=== PATIENT | male | born 1945 | race Caucasian/White ===

== ENCOUNTER 2017-03-04 17:31 | Inpatient (IN) | payer MEDICARE ==
[~2017-03-04] VITALS: Ht 172.7 cm; Wt 87.3 kg
[2017-03-04 17:35] VITALS: BP 121/78; PULSE 122; RESP 36; O2SAT 84
[2017-03-04 17:52] VITALS: BP 148/71; PULSE 110; RESP 19; O2SAT 90
[2017-03-04] MEDS ORDERED: MethylprednisoLONE Sodium Succinate 62.5 mg/mL 2 mL Inj IVPUSH ONE (18:10)
[2017-03-04] MEDS ORDERED: Epinephrine Racemic 2.25% 0.5 mL Inhalation Solution NEB ONE (18:10)
[2017-03-04 18:16] VITALS: PULSE 106; RESP 29; O2SAT 91
[2017-03-04] MEDS ORDERED: Albuterol 2.5 mg/3 mL Inhalation Solution NEB ONE (18:21)
[2017-03-04 18:30] LABS: INR 1.51 ratio
[2017-03-04 18:31] LABS: BASOPHILS % (AUTO) 0.6 % (0-3); MONOCYTES % (AUTO) 8.3 % (4-12); Mean Corpuscular Hemoglobin 31.3 pg (27.0-35.0); Mean Corpuscular Volume 89.4 fL (81-100); NEUTROPHILS % (AUTO) 58.5 % (40-74)
[2017-03-04 18:33] LABS: Platelet Count 42 bil/L (150-400)
--- NOTE | 2017-03-04 18:48 | ED.REPORT ---
HPI-Dyspnea / Wheezing Date of Service Mar 04, 2017 ED Provider: Jeff Sanchez MD Pt is a 71 year old male with a history of PE and recently diagnosed lung cancer who presents to the ED complaining of progressively worsening SOB onset 1 month ago. He c/o associated diaphoresis, dyspnea with exertion, and non- productive cough. He denies fever, leg swelling, and chest pain. Pt is currently using home O2 at 21/min. Pt was referred to the ED by Dr. Wilson for a facilitated biopsy. The pt is currently not taking his Coumadin for the past 3 days. Nursing Notes Stated Complaint: SOB Chief Complaint: Respiratory Distress Nursing Notes Reviewed: Yes (Hail Varsity, TrewCaps not reconciled) Allergies: Coded Allergies: No Known Allergies (Unverified , 03/04/17) Scheduled ([NOW brand diet supp]) 1 CAPSULE PO BID Allopurinol (Allopurinol) 100 Mg Tablet 100 MG PO HS Amlodipine (Amlodipine) 5 Mg Tablet 5 MG PO HS Cholecalciferol (Vitamin D3) (Vitamin D3) 2,000 Unit Capsule 5,000 UNIT PO DAILY Krill Oil (Krill Oil) 500 Mg Capsule 500 MG PO DAILY Lactobacillus Combo No.11 (Probiotic) 1 Each Cap.sprink 1 EACH PO BID Lovastatin (Lovastatin) 20 Mg Tablet 20 MG PO HS Prednisone (PredniSONE) 10 Mg Tablet 40 MG PO DAILY Thyroid,Pork (Nature-Throid) 162.5 Mg Tablet 195 MG PO HS Warfarin Sodium (Jantoven) 5 Mg Tablet 5 MG PO ALL OTHER DAYS Warfarin Sodium (Warfarin Sodium) 7.5 Mg Tablet 7.5 MG PO Wed Scheduled PRN Albuterol Neb Soln (Albuterol Neb Soln) 2.5 Mg/3 Ml Vial.neb 1 NEB INH Q4H PRN PRN For Shortness of Breath Lorazepam (Lorazepam) 0.5 Mg Tablet 1 TAB PO BID PRN PRN ANXIETY OR SLEEP General Time Seen by MD: 17:48 Chief Complaint Shortness of breath Hx Obtained From: Patient Arrived By: Walk-in Sudden in Onset?: No Onset Occurred: More than a week ago... (1 month) Symptom Duration: Since onset Severity: Current: No pain currently Severity: Maximum: No pain Recent Healthcare: Recent doctor visit Similar Sx Previous: No Past Medical History Past Medical History Pulmonary embolism Lung cancer Past Surgical History Denies Smoking History Unknown if Ever Smoker Social History Other Social History: Good social support Ambulatory Status Independent Review of Systems Constitutional: Denies: Fever Respiratory: Reports: Dyspnea on exertion, Non-productive cough, Shortness of breath Cardiovascular: Denies: Chest pain Musculoskeletal: Denies: Extremity swelling Allergy / Immune: Reports: Allergic reaction Complete sys rev & neg: except as marked. Physical Exam Initial Vital Signs Vital Signs (First) Date Time Temp Pulse Resp B/P Pulse Ox O2 Delivery O2 Flow Rate FiO2 03/04/17 17:35 36.4 122 36 121/78 84 Nasal Cannula 2 Initial VS: Reviewed, Vital signs abnormal Head / Eyes: Atraumatic, Normocephalic Abdomen / GI: Soft, Non-tender Extremities: Vascular intact, Neuro intact Skin: Warm, Dry, No cyanosis Neurologic: Alert, Oriented, Nonfocal Psychiatric: Mood/affect normal, Behavior normal General/Constitutional: Awake, Alert Neck: Atraumatic, Full range of motion Respiratory / Chest: Atraumatic, Breath sounds = bilat Mildly tachypneic, but does not appear to be dypneic at rest. Mild bronchospasms in all rivera. Cardiovascular: Heart rate NL, Regular rhythm, Heart sounds NL No edema. No findings of venous embolism evident on clinical exam. Interpretation & Diagnostics PE STUDY (02/16/17 - MERGED WITH [facility] REPORT): Lungs and pleura: Lungs are abnormal, significantly changed from the comparison study only 6 months ago. There now is a large central right lung mass lesion encasing and infiltrating into the right hilum and posterior mediastinum, and also into the middle mediastinum into the precarinal and subcarinal spaces and into the right paratracheal soft tissues of the middle mediastinum where enlarged lymph nodes can be seen. The overall dimensions of this area of contiguous neoplasm is up to 7.2 AP, 9.3 cm transverse and up to 10.9 cm craniocaudad. This encases the adjacent bronchus intermedius and right lower lobe bronchus, constricting these airways significantly to approximately 1/4 their normal diameter. The mass does not yet significantly narrow the transverse dimension of the superior vena cava although its medial border is now concave due to the mass at the right paratracheal area. There are several subcentimeter nodules in the right lung base, potentially pulmonary metastatic disease. Lab Results Interpretation Result Diagram: 03/04/17 1809 03/04/17 1809 Test 03/04/17 17:48 03/04/17 18:09 Urine Color Straw (YELLOW) Urine Appearance Turbid (CLEAR,HAZY) Urine pH 5.5 (5.0-8.0) Urine Specific [place] 1.025 (1.003-1.035) Urine Protein 30mg/dL (NEG,TRACE) Urine Glucose (UA) Negativemg/dL (NEGATIVE) Urine Ketones Negativemg/dL (NEGATIVE) Urine Occult Blood Negative (NEGATIVE) Urine Nitrite Negative (NEGATIVE) Urine Bilirubin Negative (NEGATIVE) Urine Urobilinogen Normalmg/dL (NORMAL) Urine Leukocyte Esterase Negative (NEGATIVE) Urine RBC 0-2/hpf (0-2) Urine WBC 0-5/hpf (0-5) Urine Epithelial Cells Occasional/hpf (NONE-MOD) Urine Crystals Amorphous urates (NONE Urine Bacteria None/hpf (NONE-FEW) Urine Hyaline Casts None/lpf (NONE) Urine Granular Casts None seen (NONE SEEN) Urine Waxy Casts None seen (NONE SEEN) Urine Red Blood Cell Casts None seen (NONE SEEN) Urine White Blood Cell Casts None seen (NONE SEEN) Urine Mucus None seen (None Seen) Urine Trichomonas None seen (NONE SEEN) Urine Yeast None (NONE SEEN) Urinalysis Comment None Urine Culture Reflexed Not indicated Hold Urine Received (Received) White Blood Count 4.8th/mm3 (3.8-10.1) Red Blood Count 3.68mil/mm3 (4.40-5.80) Hemoglobin 11.5g/dL (13.8-17.2) Hematocrit 32.9% (41.0-50.0) Mean Corpuscular Volume 89.4fL (81-100) Mean Corpuscular Hemoglobin 31.3pg (27.0-35.0) Mean Corpuscular Hemoglobin Concent 35.0% (32.0-37.0) Red Cell Distribution Width 13.4% (12.3-15.4) Platelet Count 42bil/L (150-400) Neutrophils (%) (Auto) 58.5% (40-74) Lymphocytes (%) (Auto) 30.4% (14-46) Monocytes (%) (Auto) 8.3% (4-12) Eosinophils (%) (Auto) 1.0% (0-5) Basophils (%) (Auto) 0.6% (0-3) Prothrombin Time 16.3sec (8.1-12.5) Prothromb Time International Ratio 1.51ratio Activated Partial Thromboplast Time 40.8sec (22.8-33.0) Sodium Level 135mEq/L (134-144) Potassium Level 3.8mEq/L (3.5-5.2) Chloride Level 96mEq/L (97-108) Carbon Dioxide Level 21mmol/L (18-29) Blood Urea Nitrogen 25mg/dL (8-27) Creatinine 0.84mg/dL (0.76-1.27) Estimat Glomerular Filtration Rate 95mL/min (>59) Glucose Level 131mg/dL (60-99) Calcium Level 9.4mg/dL (8.5-10.1) Total Bilirubin 0.9mg/dL (0.0-1.2) Aspartate Amino Transf (AST/SGOT) 55U/L (0-50) Alanine Aminotransferase (ALT/SGPT) 29U/L (0-44) Alkaline Phosphatase 105U/L (25-160) Total Protein 7.7g/dL (6.4-8.4) Albumin 3.8g/dL (3.4-5.0) Hold Rey Top Tube Received (Received) Lab Results Interpretation: CBC no leukocytosis, mild anemia, moderate thrombocytopenia (new) CMP normal INR is marginally elevated, warfarin discontinued 3 days ago ECG Interpretation ECG Interpretation: Sinus tachycardia of 116 Time: 18:19 Interpreted by: ED physician X-Ray Chest Interpretation Chest Xray Interpretation: IMPRESSION: Pulmonary edema pattern, mild cardiomegaly. Mild acute CHF. Dictated by: Milton Bustos M.D. on 03/04/2017 at 19:11 View: Portable, 1 view Interpretation / Wet Read by: Interpret - Radiologist Re-Eval/Medical Decision Med Decision/Clinical Course This is a 71-year-old male referred from the oncology office for admission with plan bronchoscopy for worsening and severe lung mass identified on CT scan at Hospital February 16. This patient developed a pulmonary embolus and number months ago and was transferred down off, but workup for the etiology did not identify clear cause the patient is anticoagulated. Initially did okay, but has been having night sweats and then over the past month has had progressive shortness of breath, and on 6 month follow-up had repeat CT imaging demonstrate no pulmonary embolus, but a new mass complicated lung mass in the right hilum-N please see this was done at [place]. The patient's continue to worsen, is now requiring oxygen, gets severely short of breath just walking 5 feet. He has not had chest pain, hemoptysis, leg swelling, or additional complaint. Due to the need for biopsy, his warfarin is being held, with this progressive shortness breath and sent for admission, with a plan to hold anticoagulants and bronchoscopy in a.m. by Dr. Root. On arrival the patient is hypoxic requires O2. He is a low-grade tachycardia. His bronchospastic does have a history of COPD. Grasser repeated and demonstrated new mass. Lab work is notable for thrombocytopenia. Given the slow onset of symptoms progressive over the past month and match their findings have a malignancy, and the absence of a PE-I am not finding evidence of new thrombo-artery disease, furthermore the patient's now also developed thrombocytopenia. Everything at point points at a severe, progressive lung mass that is extremely high risk. Patient is not in distress very much on arrival, but he is tachypnea. He reports he does okay at rest, but any minimal exertion is problematic. Given his CT imaging shows marked narrowing of the airways and abrasion of the proximal, I trialed some racemic epi which seemed to help somewhat. He received albuterol, steroids and attempt to further improve and stabilize his status. Given lab work chemistries to thrombocytopenia the plan is a platelet transfusion for the patient's and appropriately optimized for bronchoscopy. The case is also discussed with admitting hospitalist. Source of Hx: Old records Re-Evaluation/Progress #1: Time of Eval: 17:51 Re-Evaluation/Progress Note: Informed pt of plan for admission. Pt understands and agrees with plan for admission. All questions addressed. Re-Evaluation/Progress #2: Time of Eval: 19:29 Re-Evaluation/Progress Note: Pt rechecked. Updated pt on progress for his treatment and admission. All questions addressed. Consultation #1: Referral / Consult Name: Zia Wilson DO Note: Dr. Wilson called me to send the patient in with plan for admit and pulmonary consultation Consultation #2: Referral / Consult Name: Nciolas Root MD [place]: Will see patient Note: Requests patient be NPO after midnight and no anticoagulation with bronchoscopy planned for AM Consultation #3: Referral / Consult Name: Farheen Goodson DO Consulted With: Hospitalist Call Returned at: 19:12 [place]: Will see patient, Agrees with eval, Agrees with plan, Accepts admit Differential Diagnosis: Positive: COPD exacerbation, Respiratory insufficiency , Negative: Acute coronary syndrome, Exercise induced asthma, Hypertensive emergency, Inhalation injury, Pericarditis, Pulmonary embolism Counseled Regarding: Diagnosis, Lab results, Need for admission Discharge & Departure Impression: Primary Impression: Lung cancer Additional Impressions: Shortness of breath Hypoxia Thrombocytopenia Disposition: ADMITTED TO HOSPITAL Discharge Condition All VS Reviewed: Yes Condition: Stable Referrals: Jese Cai MD (PCP) Crit Care Except Billable Proc Time Spent: 30-74 minutes Services Performed: Patient management by me, Time spent at bedside, Reviewing test results, Reviewing imaging, Discussing patient care, Documentation in record, Time with fam/surrogate Scribe Attestation Portions of this note were transcribed by Shaylee Shah. I, Dr. Sanchez personally performed the history, physical exam and medical decision-making; I reviewed and confirmed the accuracy of the information in the transcribed note. Signed by: Hans Torre, 03/04/17. copies to: Jese Cai MD, Matthew F MD Mar 04, 2017 18:48 Shaylee Jade Mar 04, 2017 19:00
--- NOTE | 2017-03-04 19:15 | DRSVH ---
PROCEDURE: X-RAY CHEST ONE VIEW, PORTABLE ([id number]) INDICATIONS: SOB TECHNIQUE: One view of the chest was acquired. COMPARISON: None. FINDINGS: Surgical changes and devices: None. Lungs and pleura: No pleural effusions or pneumothorax. Lungs are edematous. Mediastinum: Mediastinal contours appear normal. Heart size is mildly enlarged. Bones and chest wall: No suspicious bony lesions. Overlying soft tissues appear unremarkable. IMPRESSION: Pulmonary edema pattern, mild cardiomegaly. Mild acute CHF. Dictated by: Milton Bustos M.D. on 03/04/2017 at 19:11 Approved by: Milton Bustos M.D. on 03/04/2017 at 19:13
[2017-03-04] MEDS ORDERED: 0.9% Sodium Chloride 250 ML IV ONE (19:20)
[2017-03-04] MEDS ORDERED: KRIL500C PO (19:33)
[2017-03-04] MEDS ORDERED: LACT1CAP73 PO (19:33)
[2017-03-04] MEDS ORDERED: ZYL100 PO (19:33)
[2017-03-04] MEDS ORDERED: WARF7.5T4 PO (19:33)
[2017-03-04] MEDS ORDERED: WARF5TAB9 PO (19:33)
[2017-03-04] MEDS ORDERED: CHOL200047 PO (19:33)
[2017-03-04] MEDS ORDERED: PRE10 PO (19:33)
[2017-03-04] MEDS ORDERED: LORA0.5T PO (19:33)
[2017-03-04] MEDS ORDERED: THYR162. PO (19:33)
[2017-03-04] MEDS ORDERED: AMLO5TAB2 PO (19:33)
[2017-03-04] MEDS ORDERED: [UNRECOGNIZED DRUG - OTHER] PO (19:33)
[2017-03-04] MEDS ORDERED: ALBU2.5V4 INH (19:33)
[2017-03-04] MEDS ORDERED: LOVA20TA PO (19:33)
[2017-03-04 19:39] VITALS: BP 152/56; PULSE 127; RESP 26; O2SAT 92
[2017-03-04] MEDS ORDERED: cefTRIAXone Inj 1,000 MG, Lidocaine PF 1% Inj 2.1 ML in Syringe 0 EACH IM ONE (20:00)
[2017-03-04] MEDS ORDERED: HYDROcodone-APAP 7.5-325 mg Tablet PO ONE (20:00)
[2017-03-04] MEDS ORDERED: _HYDROcodone/APAP 5-325 mg Tablet PO PRN (20:00)
[2017-03-04] MEDS ORDERED: Alum-Mag Hydrox-Simeth 30 mL Suspension PO PRN (20:20)
[2017-03-04] MEDS ORDERED: 0.9% Sodium Chloride 1,000 ML IV SCH (20:20)
[2017-03-04] MEDS ORDERED: Ondansetron 2 mg/mL 2 mL Inj IVPUSH PRN (20:20)
[2017-03-04 20:28] LABS: APPEARANCE,URINE TURBID (CLEAR,HAZY); COLOR,URINE STRAW (YELLOW); OCCULT BLOOD,URINE NEGATIVE (NEGATIVE); PH,URINE 5.5 (5.0-8.0); UROBILINOGEN,URINE NORMAL (NORMAL)
[2017-03-04 20:49] VITALS: BP 140/72; PULSE 125; RESP 28; O2SAT 92
[2017-03-04 21:12] VITALS: RESP 18; O2SAT 94
[2017-03-04] MEDS ORDERED: Albuterol-Ipratropium 3 mL Inhalation Solution NEB PRN (21:45)
[2017-03-04] MEDS ORDERED: Albuterol 2.5 mg/3 mL Inhalation Solution NEB PRN (21:45)
[2017-03-04] MEDS ORDERED: Polyethylene Glycol (PEG) 17 Gm Powder PO PRN (21:45)
[2017-03-04] MEDS ORDERED: HYDROcodone-APAP 5-325 mg Tablet PO PRN (21:45)
--- NOTE | 2017-03-04 23:09 | PCM.HPMED ---
Subjective Date of Service Mar 04, 2017 Primary Provider: Admitting Physician: Farheen Goodson DO Primary Care Physician: Jsee Cai MD Attending Physician: Farheen Goodson DO Admit Status: From the Emergency Department, Full Admit, [facility] Telemetry Chief Complaint: Dyspnea with hypoxia. . History of Present Illness: Jono Mayfield is a 71-year-old male with a past medical history significant for hypertension, hyperlipidemia, gout, prostate cancer status post radioactive seed implantation, hypothyroidism, saddle embolus on warfarin, and recently diagnosed large lung mass who presented to [facility] emergency Department for worsening shortness of breath. The patient was at Dr. Wilson of oncology's office who directed the patient to come to the ER as he was severely hypoxemic. The patient presented with an oxygen saturation of 84% on 2 L nasal cannula. The patient was diagnosed with a saddle embolus 6 months ago evaluated at [facility] for possible surgical intervention which was deemed unnecessary at that time and he was started on warfarin. There was no lung mass visualized at that time. He then had a recent CT chest that revealed a large ~10 cm lung mass encroaching on airway. He reports that approximately 5 -6 weeks ago he began having shortness of breath. He reports that his shortness of breath has acutely worsened over the last 10 days, especially in the last 1-2 days. He was recently started on 2 L continuous oxygen yesterday 03/03/2017. The patient denies headache, vision changes, chest pain, pleuritic chest pain, vomiting, fever, chills, extremity pain, calf tenderness, dysuria, diarrhea or constipation. He does endorse night sweats once a month, mid back pain 2 weeks and right rib pain when he bends over. He has had a poor appetite for several months and has lost approximately 5 lbs unintentionally. He was recently started on levofloxacin for postobstructive pneumonia prophylaxis which he reports causes nausea. He has no other complaints at this time. Vital signs in the ER: Temperature 36.4. Pulse 122. Respiratory rate 36. Blood pressure 121/78. Pulse ox 84% on 2 L nasal cannula. He was given in the ED: albuterol continuous nebulizer 10 mg 1, racemic epinephrine nebulizer 1, and methylprednisolone IV 125 mg [address]CP [address] Dr. Cai. Oncologist is Dr. Wilson. . Review of Systems: A comprehensive review of systems was conducted with the patient and found to be negative except as above in the History of Present Illness. . Allergies Coded Allergies: No Known Allergies (Unverified , 03/04/17) Home Medications Allopurinol 100 mg daily. Hydrocodone 5-3 25 every 6 hours as needed for pain. Krill oil 500 mg daily. Levofloxacin 500 mg daily. Lisinopril 10 mg daily. Lovastatin 20 mg daily at bedtime. Lorazepam 0.5 mg as needed for insomnia. Natural pig thyroid supplement 190 daily. Prednisone taper - currently on 30 mg daily. Probiotic daily. Oxygen 2 L continuous. Ubiquinol 100 mg daily. Vitamin D3 2000 international units daily. . PMH 1. Hypothyroidism on natural pork thyroid replacement. 2. Prostate cancer status post radioactive seed implantation. 3. Hypertension. 4. Hyperlipidemia. 5. Gout. 6. Esophageal spasm. 7. Recently diagnosed large inoperable lung mass workup pending. 8. History of saddle embolus on warfarin. 9. Insomnia. . Surgical History 1. Cholecystectomy. 2. Tonsillectomy. 3. Left inguinal hernia repair. 4. Radioactive seed implantation in prostate. . Family History Father who of emphysema and 92 years old. Mother of "old age." One sister who of neuroendocrine tumor. Another sister who has a history of DVT. Brother with morbid obesity and diabetes mellitus type II. . Social History Hx Alcohol Use: Yes (1-2 mixed drinks a night) Hx Substance Use: No Hx Tobacco Use: Yes Smoking Status: Former Smoker (1PPD x 20 years, cigars daily until several months ago now uses vaporizer), Unknown if Ever Smoker Additional Information The patient has been for 50 years. They have 2 children, 1 son and 1 daughter who are both healthy. He is a retired CPA/personal financial planner. . Exam Vital Signs Vital Sign - Last Date Time Temp Pulse Resp B/P Pulse Ox O2 Delivery O2 Flow Rate FiO2 03/04/17 21:12 122 18 94 Nasal Cannula 40 60 03/04/17 20:49 37.4 140/72 Exam General: Older gentleman lying in bed and in mild distress, chronically ill- appearing, appropriately interactive. HEENT: Normocephalic, atraumatic. External ears without defect. Pupils equal, round, and reactive to light. Anicteric sclerae, moist conjunctivae, and no lid lag. Oropharynx free of erythema and cobble stoning with moist mucosa. Neck: Supple with full range of motion. No jugular venous distension. No bruits. No lymphadenopathy or thyromegaly. Cardiovascular: Regular rhythm, tachycardic, without murmurs, rubs, or gallops appreciated. Pulmonary: Diffuse wheezing with scattered rhonchi, no audible breath sounds at right base. Mild use of accessory muscles. Abdomen: Soft, nontender, nondistended, bowel sounds present. No hepatosplenomegaly or masses appreciated. Extremities: No clubbing, cyanosis, or edema. Skin: Normal temperature, turgor, and texture; no rash, ulcers, or subcutaneous nodules appreciated. Neurological: Cranial nerves grossly intact. Normal muscle strength, tone, and bulk. Reflexes, coordination, and sensory function within normal limits. No known gait impairment. Psychiatric: Normal mood and affect. Alert and oriented to person, place, and time. . Lab and Diagnostics Result Diagram: 03/04/17180803/04/171808 Microbiology Blood cultures 2 pending. . X-Rays, CTs and MRIs X-RAY CHEST ONE VIEW, PORTABLE IMPRESSION: Pulmonary edema pattern, mild cardiomegaly. Mild acute CHF. Dictated by: Milton Bustos M.D. on 03/04/2017 at 19:11 . 12-lead ECG EKG: Sinus tachycardia, heart rate 116, left axis, normal intervals, normal R- wave progression, baseline artifact, no pathological Q waves or acute ischemic changes such as ST elevation or depression. . Assessment & Plan Jono Mayfield is a 71-year-old male with a past medical history significant for hypertension, hyperlipidemia, gout, prostate cancer status post radioactive seed implantation, hypothyroidism, saddle embolus on warfarin, and recently diagnosed large lung mass who presented to [facility] emergency Department for worsening shortness of breath. 1. Acute hypoxemic respiratory failure, present on admission. Active. - The patient presented with acute worsening shortness of breath, tachypnea (RR 36), tachycardia (122), and cough with large lung mass concerning for post- obstructive pneumonia. No leukocytosis or fever. 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 He has been off his warfarin for one day for planned bronchoscopy. - Continue high flow oxygen to keep oxygen saturation between 88-92%. - Ordered Duonebs and albuterol nebs every 2 hours as needed for shortness of breath/wheeze. - Started Zosyn IV 3.375 g every 8 hours for probable post-obstructive pneumonia. - Chest x-ray demonstrated pulmonary edema pattern and mild cardiomegaly, as above. May consider furosemide if hypoxia worsens. - Ordered CTA to assess for possible central/saddle pulmonary emboli. 2. SIRS secondary lung mass vs post obstructive pneumonia, present on admission. Active. - The patient presented with acute worsening shortness of breath, tachypnea (RR 36), tachycardic (122), and cough, with large lung mass concerning and also concern for post-obstructive pneumonia. No leukocytosis or fever. - Early goal-directed therapy met including: Broad-spectrum IV antibiotics and early fluid resuscitation. 3. Post-obstructive pneumonia, present on admission. Active. - The patient presented with acute worsening shortness of breath, tachypnea (RR 36), tachycardic (122), and cough, with large lung mass. No leukocytosis or fever. - Chest x-ray demonstrated pulmonary edema pattern and mild cardiomegaly, as above. - CTA ordered and pending. - Pro-calcitonin elevated at 0.36. Continue to trend daily. - Ordered pneumonia workup including: blood cultures 2, sputum Gram stain and culture if obtainable, and strep pneumoniae and legionella urine antigens. - Ordered MRSA screen. - Tylenol and hydrocodone as needed for fever and pain, respectively. - Started Zosyn 3.375 g every 8 hours. 4. Recently diagnosed large lung mass, present on admission. Active. - Patient will be nothing by mouth after midnight for planned bronchoscopy tomorrow with Dr. Root. - Continue methylprednisolone 125 mg every 6 hours. - Continue high flow oxygen to keep oxygen saturation between 88-92%. - Ordered oncology consultation with Dr. Katie forte oncologist. 5. History of saddle embolus on warfarin. - The patient stopped warfarin a day ago for planned bronchoscopy. - Initial INR subtherapeutic at 1.51. Continue warfarin with dosing per pharmacist once bronchoscopy is completed. - Ordered CTA to assess for possible central/saddle pulmonary emboli. 6. Thrombocytopenia, acuity unknown, present on admission. Active. - Likely secondary to bone marrow suppression from lung carcinoma. - Initial platelet count 42. - Ordered 1 unit of platelets to be transfused. - Continue to monitor platelet count daily. 7. Anemia, acuity unknown, present on admission. Active. - Likely secondary to bone marrow suppression from lung carcinoma. - Initial hemoglobin 11.5. -The patient is hemodynamically stable and there are no signs of bleeding. - Continue to monitor hemoglobin and hematocrit daily. Chronic problems: 8. Gout, not present on admission. Stable. - Continue allopurinol 100 mg daily. 9. Hypertension, present on admission. Stable. - Continue lisinopril 10 mg daily. 10. Hyperlipidemia, present on admission. Stable. - Continue lovastatin 20 mg daily at bedtime. 11. Insomnia, present on admission. Stable. - Continue lorazepam 0.5 mg as needed for insomnia. 12. Hypothyroidism, present on admission. Stable. - The patient would like to continue taking his natural pork thyroid supplement 190 mg daily please verify with pharmacy. - Ordered TSH, pending. PRN antiemetics: Zofran and Maalox. PRN bowel regimen: Senna and MiraLAX. PRN analgesics: Tylenol and hydrocodone. Patient is admitted under inpatient status with expected length of stay greater than 2 midnights due to severity of presenting symptoms, risk of adverse event, and complexity of treatment plan. . VTE Prophylaxis: SCDs Resuscitation Status: CPR: Attempt Resuscitation Attending Statement The patient was seen and examined together with house staff on 03/04/2017 and I agree with the history, exam and plan as outlined in the note above. copies to: Zia Wilson DO; Jese Cai MD; Zulema Root MD, [place] M DO Mar 04, 2017 22:18 Farheen Goodson DO Mar 05, 2017 04:36
[2017-03-04] MEDS ORDERED: Piper-Tazo 3.375 Gm/50 mL D5W Minibag Plus - Q8H over 4 hrs IV ONE ×2 (23:40)
[2017-03-04] MEDS ORDERED: Piperacillin-Tazo 3.375 Gm Inj 3.375 GM in Dextrose 5% Minibag Plus 50 ML IV ONE (23:40)
[2017-03-05] VITALS (25 sets, daily range): BP systolic 120–149; BP diastolic 60–80; PULSE 98–134; RESP 18–38; O2SAT 77–94
[2017-03-05] MEDS: 0.9% Sodium Chloride 250 ML IV SCH ×2 (00:19→21:20)
[2017-03-05] MEDS ORDERED: Heparin 5,000 Unit/mL Inj SUBQ SCH (00:30)
[2017-03-05] MEDS: LORazepam 0.5 mg Tablet PO PRN ×2 (01:37→19:10)
[2017-03-05] MEDS: MethylprednisoLONE Sodium Succinate 62.5 mg/mL 2 mL Inj IVPUSH SCH ×4 (01:47→21:16)
[2017-03-05 04:19] LABS: BASOPHILS % (AUTO) 0.9 % (0-3); EOSINOPHILS % (AUTO) 0.9 % (0-5); Mean Corpuscular Hemoglobin 31.4 pg (27.0-35.0); NEUTROPHILS % (AUTO) 59.8 % (40-74); Platelet Count 80 bil/L (150-400)
[2017-03-05 04:28] LABS: INR 1.3 ratio
[2017-03-05 04:49] LABS: Magnesium 2.3 mg/dL (1.6-2.6)
[2017-03-05] MEDS ORDERED: Furosemide 10 mg/mL 4 mL Inj IVPUSH ONE (05:00)
--- NOTE | 2017-03-05 05:58 | NUR ---
Admit/CT/Respiratory/NPO Pt admitted to room 2025 at around 2100, arrived and able to transfer from bed to bed w/ SBA but w/ significant dyspnea. Pt bedrest remainder of night and verbalized understanding. in room as pt arrived and trialed pt off 15L nonrebreather and on to 15L NC. Pt monitored on DRAG SEINER, maintaining sats 92-93. MD asked RT to place pt on high flow at that time, settings 40L and 50% FiO2, sats 93-94%. Pt not in acute distress and able to answer questions appropriately, denied any pain. Tele STach 120s. Med rec reviewed prior to arrival to floor. Stat CT ordered and pt taken down once CT available. Pt taken in bed and on 15L nonrebreather mask. RT also came to standby as pt had CT done, pt able to tolerate w/out events. 1 unit platelets ordered and given w/out any new noted or reported symptoms, vitals stable throughout. This morning as pt turned to left to urinate while in bed he took a significant amount of time to recover, sats sustaining around 82%. Pt denied any significant SOB, but noted to have increased work of breathing. RT was called and gave neb treatment, high flow setting adjusted to 50L/60%, sats now 88-91%. notified and ordered one time 40mg Lasix dose. Pt NPO since midnight except for PO Ativan dose around 0140. Ongoing care. Addendum: 03/05/17 at 0714 by NARENDRA FLORES RN Red streaked sputum sent to lab, aware.
[2017-03-05] MEDS ORDERED: levoFLOXacin Inj 750 MG in IV Premix 1 EACH IV SCH (08:30)
--- NOTE | 2017-03-05 08:34 | DRSVH ---
PROCEDURE: CT ANGIO CHEST PULMONARY EMBOLISM ([id number]) INDICATIONS: sob, large lung mass and h/o saddle emboli TECHNIQUE: After the administration of intravenous contrast, 2 mm thick sections acquired from the pulmonary api mirella to the posterior costophrenic angles. 3-dimensional maximum intensity projection (MIP) coronal a nd sagittal reformats were then acquired through the thorax. For radiation dose reduction, the follo wing was used: automated exposure control, adjustment of mA and/or kV according to patient size. COMPARISON: [facility], CT, PE STUDY (CTA CHEST), 02/16/2017, 10:07. FINDINGS: Image quality: Excellent. Pulmonary arteries: Pulmonary arteries are normal in size, and demonstrate no intraluminal filling d efects to suggest central pulmonary embolism. Lungs and pleura: There is new moderate multifocal groundglass densities seen within the left upper a nd lower lobes. New dense air space opacification within the right upper and lower lobes posteriorly is present, consistent with postobstructive phenomenon. Multiple increased nodular densities are seen within the bilateral lungs, partially obscured by airspace disease. These range in size from 4 mm-14 mm. No pleural effusions or pneumothorax. Central and peripheral airways are patent. Mediastinum: Heart size is normal, without pericardial effusion. As before, there is a large mediast inal/right hilar mass which encases the right main pulmonary artery, as well as the right upper, righ t middle, and right lower lobe pulmonary arteries. The mass encases the right mainstem bronchus, the right upper lobe bronchus, the bronchus intermedius, as well as the right lower and right middle lobe bronchi. This mass severely narrows the right middle lobe bronchus, and occludes the right upper and lower lobe bronchi. The mass extends posteriorly to partially encase the esophagus. The mass measure s roughly 94 mm anteroposterior by 96 mm transverse by 9 mm craniocaudal, and has increased in size. Thoracic aorta is normal in caliber and enhancement. Esophagus is normal in caliber, without hiatal hernia. Diffuse esophageal thickening, especially involving the mid and superior thoracic esophagus i s present. Bones and chest wall: No suspicious bony lesions. Ribs and thoracic spine appear intact throughout. Thyroid gland is not well seen. No axillary or supraclavicular adenopathy. Abdomen: Visualized upper abdominal solid organs appear normal in the early arterial phase of enhanc ement. IMPRESSION: 1. No pulmonary embolus. 2. Increased mediastinal/right hilar mass with bronchovascular encasement and occlusion. 3. New multifocal airspace/groundglass densities, indicating worsening postobstructive phenomenon, an d pneumonia. 4. Increased pulmonary metastatic disease. 5. Concordant with preliminary interpretation. Dictated by: Brittany Macario M.D. on 03/05/2017 at 8:07 Approved by: Brittany Macario M.D. on 03/05/2017 at 8:32
[2017-03-05] MEDS: Piperacillin-Tazo 3.375 Gm Inj 3.375 GM in Dextrose 5% Minibag Plus 50 ML IV SCH ×2 (09:01→18:08)
[2017-03-05] MEDS ORDERED: fentaNYL-PF 50 mCg/mL 2 mL Inj IVPUSH PRN (11:50)
--- NOTE | 2017-03-05 13:12 | CONS ---
[address] [address] CONSULTATION REPORT PATIENT: KELLY DENSON : 1945 MR#: [id number] ADMIT: 03/04/2017 JOB ID: [id number] DATE OF SERVICE: 03/05/2017 The patient is a 71-year-old man seen in consultation at the request of Dr. Self for large right lung mass and suspected lung malignancy. The patient was seen and evaluated with resident physician, Dennys Plaza. Please refer to his separate detailed note for additional information. The following is a brief attending note. HISTORY OF PRESENT ILLNESS: The patient is a 71-year-old man who presented in August 2016 with acute saddle pulmonary embolism that was unexplained. At that time, there was no sign of any mass on his chest imaging. He had a longstanding history of smoking for 35 pack years and quit smoking after this diagnosis in early 2016. He was admitted to [facility], treated for the pulmonary embolism and discharged on warfarin. He began to notice worsening shortness of breath over the last few weeks, and on a routine followup chest CT in early February to confirm resolution on the PE, it was noted that he had a large 10 cm right lung mass. He was referred to thoracic surgery at [facility]. They recommended doing a biopsy of a left renal-based mass to confirm diagnosis of malignancy rather than doing a bronchoscopy. The patient, while waiting for this procedure, continued to get worse and went in to see Oncology, Dr. Wilson, in [place] yesterday. He was doing so poorly at that visit that he recommended admission to [facility] for further evaluation. With regards to oxygenation, the patient says he has never been on home O2 in the past, but two days ago when he saw his PCP, his sats were low in the 80s and he was started on oxygen on that day. Currently, he is on 50% to 60% FiO2 on high-flow nasal cannula saturating barely around 90. Symptoms include 5-pound weight loss, increasing shortness of breath, cough with sputum and sometimes blood, chest pain, occasional headache. PAST MEDICAL HISTORY: Notable for hypertension, gout, hyperlipidemia, prostate cancer, hypothyroidism, right femur osteomyelitis. SOCIAL HISTORY: Notable for 35 pack-year smoking history. Quit smoking around July 2016. Complete history, including family history, review of systems, medications, etc., is per Dr. Plaza's separate detailed note as is the physical exam. PHYSICAL EXAM: Notable for sats of 87% to 91% on 60% FiO2. He is tachycardic around 100-105. General: Pleasant gentleman, lying in bed, slightly tachypneic at rest. Chest: Bilateral wheezing heard all over the lung rivera, which could be due to airway narrowing from tumor. LABORATORIES: Reviewed. Platelets are low at 42 and came up to 80 with platelet transfusion. INR today is 1.3 compared to 1.5 yesterday. Procalcitonin is 0.3. IMAGING: CT of the chest done yesterday as well as August 2016 and February 16, 2017 were all reviewed. Most recent CT shows a large 10 cm right hilar mass that is compressing the right mainstem bronchus and all distal airways. There is extension into the mediastinum and subcarinal region, although no evidence of a compression of the superior vena cava. The right main pulmonary artery is compressed. There is also extensive ground glass and interlobular septal thickening involving the posterior segment of the right upper lobe as well as the right lower lobe. There are multiple satellite nodules in the right lung suspicious for metastases. There is a small 2 cm lesion on the left kidney also suspicious for metastasis. CT from August 2016 shows massive saddle pulmonary embolism which has now resolved on most recent imaging. ASSESSMENT AND RECOMMENDATIONS: 1. Acute hypoxic respiratory failure, on 60% high-flow nasal cannula. 2. Large right hilar lung mass, highly suspicious for lung malignancy, highly suspicious for lung malignancy. 3. Recent submassive pulmonary embolism with saddle embolus in August 2016, now resolved, has been on anticoagulation. 4. Thrombocytopenia--unexplained. This 71-year-old man presented with a saddle pulmonary embolism in August 2016 and no evidence of a lung mass at that time. He was treated appropriately with anticoagulation which has been on hold since Wednesday, i.e. about 5-6 days ago. On routine followup CT, he was found to have a large 10 cm right hilar mass highly suspicious for a primary lung malignancy. He is currently quite hypoxic and in the addition to the right-sided mass, he has a left-sided infiltrate that is new compared to his CT from two weeks ago. This is more likely to be infection than edema or lymphangitic spread because of its unilateral nature, I think. Agree with Zoyuliet to treat potential left-sided community-acquired pneumonia. We will hopefully get cultures today and a bronchoscopy. He is also on Solu-Medrol 125 mg q.6 h., and I am not really sure that this is necessary. I think we can cut down to 60 mg a day. I suspect his wheezing and shortness of breath and hypoxia are due to his lung mass and pneumonia rather than a COPD exacerbation. My recommendation again is to cut down to 60 mg of prednisone a day and continue scheduled nebs, if they are helping symptomatically. Discussed at length with the patient about proceeding with bronchoscopy with biopsies. Because of the severely of his hypoxia, the endoscopy nurses will not be comfortable giving him sedation and so I have requested an Anesthesiology consult. I was jin with the patient that while I would like to do the procedure under moderate sedation, given his degree of hypoxia, the anesthesiologist may think it is safer to put in an ET tube. I would defer to Anesthesia about that. Regardless, the procedure is tentatively scheduled for 2 p.m. today--bronchoscopy with biopsies and lavage. Patient understands risks and benefits and has consented to proceeding.
--- NOTE | 2017-03-05 13:30 | NUR ---
Respiratory Pt is on high flow settings 55L and 60% FiO2, sats 88-92% for much of the shift. With coughing the patient would desat to 86%. Pt having an occasional productive cough, with zuluaga red tinged sputum. Pt denied feeling SOB. On bedrest at this time due to oxygen needs. Remaining NPO.
--- NOTE | 2017-03-05 14:08 | PCM.CHPMED ---
Subjective Date of Service: Mar 05, 2017 Provider requesting consult: Jere Self MD Primary Physician: Admitting Physician: Farheen Goodson DO Primary Care Physician: Jese Cai MD Attending Physician: Jere Self MD Admit Status: From the Emergency Department Chief Complaint: Chief Complaint: WorseningSOB, Dyspnea, generalized weakness and malaise. History of Present Illness: Pulmonology Consult Requesting physician: Dr. Katie escamilla Reason for consult: New rapidly evolving Rt. hilar lung mass requiring bronchoscopy and diagnostic biopsy This is a pleasant 71 Y/O M with past medical hx of 35 years hx of Tobacco use disorder cigarettes, pipe, and more recently cigars. Patient quit smoking in July of 2016 after diagnosis of PE on warfarin. Prior hx of HTN, Gout, hypothyroidism, osteomyelitis of the right lower extremity, and prostate cancer s/p seed radiotherapy. Patient had CT angio with evidence of saddle PE at [facility] after having experienced worsening SOB and dyspnea in July of 2016. At that time the patient was transferred to [facility] for expected thrombectomy procedure. Heparin drip therapy was initiated in place of thrombectomy as it was determined that thrombectomy was not necessary. The patient denies any history of EKOS therapy for his PE. He was discharged home on warfarin. He then began to experience increasing SOB and dyspnea over the past 5 weeks that he attributed to his history of PE. The patient opted to wait for his follow up CT scan done February 16 to evaluate for resolution of his PE. This follow up CT chest revealed a new large right sided hilar mass surrounding the right pulmonary arteries and main stem bronchus that was not previously seen on his CT chest from July of this year. Per patient Cardio-thoracic surgery Dr. Martinez at [facility] was consulted and planned for biopsy of patients enlarged right renal lymph-node on March 16. He was started on a course of oral levofloxacin for a post obstructive pneumonia seen on CT. Patient did not tolerate the Levofloxacin secondary to it making him nauseas. Patient SOB has progressively continued to worsen and became more severe over the past 48 hours and patient was seen by his PCP Dr. Cai on this Wednesday. Patient was seen on by Dr Katie escamilla and was immediately sent to the ED secondary to respiratory distress, and hypoxemia. He was started on Zosyn, methylprednisolone 125 mg Q6H, and Lasix 40 mg IV once in the ED. A repeat of his chest CT done on this admission showed enlargment just since February 16 of the right sided mass which measured 10 cm and surrounding the right mainstem bronchus and pulmonary arteries. He has been on warfarin and his last dose was Wednesday, His current INR is 1.3 and he does not take any other anti-platelet or anticoagulant medications. On this admission his H/H is 10.8/31.3, platelets 80. He has been requiring Hiflow O2 via NC at 50 L and his O2 sats are 90%. No ABG is available at this time for review. He reports intermittent chills over the last months as well as sweats, an unintentional weight loss of 5 lbs he attributes to loss of appetite, some right sided rib pain, mid back pain, and cough productive of blood tinged sputum. Associated symptoms included intermittent mild VELA's for one week about 2 weeks ago. He denied any F, N, V. abdominal pain. Patient has lived his entire life in the [facility]. He has travelled yearly to [facility] since 2007, but denies any hx of TB, denies family hx of TB. 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 He has never kept farm animals or worked in construction or in the ship building industry. He has traveled to [place] but this was many years ago. He has no hx and has never spent time in intermediate. Review of Systems: A complete review of systems was conducted and was negative except as mentioned in HPI. PMH Past Medical History Hypothyroidism on natural pork thyroid replacement. Prostate cancer status post radioactive seed implantation. Hypertension. Hyperlipidemia. Gout. Esophageal spasm. PE saddle Recently diagnosed large inoperable lung mass workup pending. History of saddle embolus on warfarin. Insomnia. . Surgical History Cholecystectomy. Tonsillectomy. Left inguinal hernia repair. Radioactive seed implantation in prostate. . Right LE oseomyelitis requiring surgery Allergies: Coded Allergies: No Known Allergies (Unverified , 03/04/17) Family History Family History Father who of emphysema and 92 years old. Mother of "old age." One sister who of neuroendocrine tumor. Another sister who has a history of DVT. Brother with morbid obesity and diabetes mellitus type II. . Social History Hx Alcohol Use: Yes ("a couple per night")Hx Substance Use: NoHx Tobacco Use: Yes Smoking Status: Former Smoker (1PPD x 20 years, cigars daily until several months ago now uses vaporizer) Unknown if Ever Smoker Exam Vital Signs Vital Sign - Last Date Time Temp Pulse Resp B/P Pulse Ox O2 Delivery O2 Flow Rate FiO2 03/05/17 13:03 36.9 98 20 143/73 92 high flow 03/05/17 08:00 55 60 Intake and Output 03/04/17 03/04/17 03/05/17 Cumulative From/Thru 15:00 23:00 07:00 03/04/17 17:35 - 03/05/17 06:45 Intake Total 887 ml 887 ml Output Total 525 ml 525 ml Balance 362 ml 362 ml Intake Oral 200 ml 200 ml IV Total 408 ml 408 ml Platelets 279 ml 279 ml Output Urine Total 525 ml 525 ml General: Alert, Oriented X3, Cooperative, Other (Appearing SOB despite being on Hif[place] O2, speaking in full sentences.) Head: Normal, Facial Expression & Appearance Eyes: PERRLA, EOMI Nose: Mucous Membr Moist/[place] Mouth: Lips, Mucous Membr Moist/[place] Neck: Supple, No Thyromegaly, Other (No masses, no lymphadenopathy) Chest & Lungs: Coarse breath sounds ( on the left bases with crackles mid lung field to bases on the left worse then on the right. Significantly decreased breathsounds despite adequate effort on the right compared to the left.) Cardiovascular: Regular Rate/Rhythm, Normal S1, Normal S2, No Murmurs/Rubs/ Gallops Pulses: Radial (equal b/l), Dorsalis Pedis (equal b/l) Abdomen: Non-tender, Non-distended, Soft, Other (BS heard ) Musculoskeletal: Unremarkable (MS is symetric and 5/5 U/L extremity b/l), Normal Range of Motion Extremities: No cyanosis/clubbing/edma bilat, Normal bilaterally, Warm, No Edema Skin: Other (Warm dry and intact without rash) Neurological: Grossly Neurologically Intact, Normal Speech, Strength Normal 4/ 4 ext, Sensation Intact Lab and Diagnostics Result Diagram: 03/05/17 0355 03/05/17 0355 Assessment & Plan Assessment Jono Mayfield is a 71-year-old male with a past medical history significant for hypertension, hyperlipidemia, gout, prostate cancer status post radioactive seed implantation, hypothyroidism, saddle embolus on warfarin, and recently diagnosed large lung mass who presented to [facility] emergency Department for worsening shortness of breath. # Right Hilar Lung Mass, present on admission. Active - As redemonstrated on CTA and this mass measures 10 cm and surrounds and occludes the right mainstem bronchus as well as surrounds the right pulmonary arteries. No evidence for recurrence of PE. - Give the rapid progression of this mass that was not present just 6 months ago , suspect this is small cell lung cancer. - Patient is being followed as of yesterday by Dr. Wilson of oncology who is requesting that a biopsy for definitive diagnosis be done. - Patient currently nothing by mouth - We may stop the methylprednisolone 125 mg every 6 hours as this is not a COPD exacerbation and his respiratory failure is likely all secondary to his worsening lung mass and perhaps his underlying pneumonia. - Continue high flow oxygen to keep oxygen saturation between 88-92%. - Will take patient for bronchoscopy for diagnostic biopsy today. - Consult Anesthesia for airway and sedation management. Thank you for your recommendations # Acute hypoxemic respiratory failure, present on admission. Active. - Multifactorial secondary to newly diagnosed right sided lung mass that surrounds the right mainstem bronchus, secondary to post obstructive pattern, and worsening bilateral pneumonia. - The patient presented with acute worsening shortness of breath, tachypnea (RR 36), tachycardia (122), and cough with large lung mass concerning for post- obstructive pneumonia. No leukocytosis or fever. 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 He has been off his warfarin since Wednesday03/01/2017. - Continue high flow oxygen to keep oxygen saturation between 88-92%. - Continue Duonebs every 2 hours and albuterol nebs every 2 hours as needed for shortness of breath/wheeze. - Continue Zosyn IV 3.375 g every 8 hours for probable post-obstructive pneumonia. - Chest x-ray demonstrated pulmonary edema pattern and mild cardiomegaly, as above. May consider furosemide if hypoxia worsens. - CTA here showed no PE, but worsening of right hilar mass - Avoid intubation if all possible overnight. Expect O2 sats to remain in the 80 's up to 12 hours post bronchoscopy. Maintain patient on BIPAP. If patient starts to desaturate then contact Dr. Root. # Post-obstructive pneumonia, present on admission. Active. - The patient presented with acute worsening shortness of breath, tachypnea (RR 36), tachycardic (122), and cough, with large lung mass. No leukocytosis or fever. - Chest x-ray demonstrated pulmonary edema pattern and mild cardiomegaly, as above. - Pro-calcitonin elevated at 0.36. Continue to trend daily. - Lefionella and Strep pneumonia negative, MRSA negative. - blood cultures 2 pending - Sputum Gram stain and culture not done secondary to poor quality sample - Will obtain sputum sample during the bronchoscopy. - Zosyn 3.375 g every 8 hours. # SIRS secondary lung mass vs post obstructive pneumonia, present on admission. Active. - The patient presented with acute worsening shortness of breath, tachypnea (RR 36), tachycardic (122), and cough, with large lung mass concerning and also concern for post-obstructive pneumonia. No leukocytosis or fever. - Early goal-directed therapy met including: Broad-spectrum IV antibiotics and early fluid resuscitation. # History of saddle embolus on warfarin. - Stopped warfarin for bronchoscopy. - Initial INR subtherapeutic at 1.51, and repeat 1.31 - Will wait to restart anticoagulation after bronchoscopy and biopsy secondary to risk of bleed. Patient has had 6 months of anticoagulation therapy. Will consider heparin tomorrow. # Thrombocytopenia, acuity unknown, present on admission. Active. - Likely secondary to bone marrow suppression from lung carcinoma. - Initial platelet count 42. currently 80. - s/p 1 unit of platelets transfused. - Continue to monitor platelet count daily. # Anemia, acuity unknown, present on admission. Active. - Likely secondary to bone marrow suppression from lung carcinoma. - Initial hemoglobin 11.5. -The patient is hemodynamically stable and there are no signs of bleeding. - Continue to monitor hemoglobin and hematocrit daily. Problems: VTE Prophylaxis: SCDs Resuscitation Status: CPR: Attempt Resuscitation Attending Statement I have seen and examined this patient with the resident physician. Vital signs , labs, imaging have been reviewed. I agree with the assessment and plan above. Please refer to my separately dictated progress note for any modifications to above. Zulema Root M.D. Pulmonary and Critical Care medicine Pager [phone] Dennys Plaza DO Mar 05, 2017 14:08 Zulema Root MD Mar 07, 2017 14:49 - Ordered TSH, pending. PRN antiemetics: Zofran and Maalox. PRN bowel regimen: Senna and MiraLAX. PRN analgesics: Tylenol and hydrocodone. Patient is admitted under inpatient status with expected length of stay greater than 2 midnights due to severity of presenting symptoms, risk of adverse event, and complexity of treatment plan. Problems: VTE Prophylaxis: SCDs Resuscitation Status: CPR: Attempt Resuscitation Dennys Plaza DO Mar 05, 2017 14:08
--- NOTE | 2017-03-05 15:19 | PCM.PNMED ---
Subjective Date of Service Mar 05, 2017 Subjective Jono Mayfield is a 71-year-old male with a past medical history significant for hypertension, hyperlipidemia, gout, prostate cancer status post radioactive seed implantation, hypothyroidism, saddle embolus on warfarin, and recently diagnosed large lung mass who presented to [facility] emergency Department for worsening shortness of breath. Nursing reports no acute events overnight. Patient seen and examined. C/o SOB that is relieved with supplemental O2. Denies CP, ABD pain, N/V/D, Headache, urinary symptoms, and rash. Patient is having good urine output. Has had a bowel movement in the last 24 hours. ROS reviewed and is otherwise negative unless noted above. Exam Vital Signs Vital Sign - Last Date Time Temp Pulse Resp B/P Pulse Ox O2 Delivery O2 Flow Rate FiO2 03/05/17 13:03 36.9 98 20 143/73 92 high flow 03/05/17 08:00 55 60 Intake and Output 03/04/17 03/04/17 03/05/17 Cumulative From/Thru 15:00 23:00 07:00 03/04/17 17:35 - 03/05/17 06:45 Intake Total 887 ml 887 ml Output Total 525 ml 525 ml Balance 362 ml 362 ml Intake Oral 200 ml 200 ml IV Total 408 ml 408 ml Platelets 279 ml 279 ml Output Urine Total 525 ml 525 ml Exam Constitutional: Awake, alert, and oriented x3. In no acute distress. Head: Normocephalic and atraumatic Eyes: Pupils equal round and reactive to light. EOMI. Heart: regular rate and rhythm. No peripheral edema. Lungs: diffuse wheeze throughout, increased during expiratory phase. Diminished lung sounds on the left side. no rales, or rhonchi. ABD: soft, nontender, bowel sounds present throughout. Musculoskeletal: moves all four extremities appropriately. Skin: warm, dry, no rash. Neuro: CN II-XII intact. No focal deficits. Psych: appropriate mood and affect IVs and Medications Medications Reviewed: Medications were reviewed in detail Medications High Risk IV Medications: Zosyn Lab and Diagnostics Item Value Date Time Red Blood Count 3.44 mil/mm3 L 03/05/17 035 Mean Corpuscular Volume 91.0 fL 03/05/17354 Mean Corpuscular Hemoglobin 31.4 pg 03/05/17354 Mean Corpuscular Hemoglobin Concent 34.5 % 03/05/17354 Red Cell Distribution Width 13.6 % 03/05/17354 Platelet Count 80 niyah/L L 03/05/17354 Neutrophils (%) (Auto) 59.8 % 03/05/17354 Lymphocytes (%) (Auto) 32.3 % 03/05/17354 Monocytes (%) (Auto) 5.0 % 03/05/17354 Basophils (%) (Auto) 0.9 % 03/05/17354 Eosinophils (%) (Auto) 0.9 % 03/05/17354 Estimat Glomerular Filtration Rate 102 mL/min 03/05/17354 Calcium Level 9.3 mg/dL 03/05/17354 Magnesium Level 2.3 mg/dL 03/05/17354 Total Bilirubin 0.8 mg/dL 03/05/17354 Aspartate Amino Transf (AST/SGOT) 53 U/L H 03/05/17354 Alanine Aminotransferase (ALT/SGPT) 26 U/L 03/05/17354 Alkaline Phosphatase 99 U/L 03/05/17354 Total Protein 7.6 g/dL 03/05/17354 Albumin 3.6 g/dL 03/05/17354 Procalcitonin 0.29 ng/mL H 03/05/17354 Free Thyroxine 0.59 ng/dL L 03/05/17354 Result Diagram: 03/05/1735403/05/17354 Microbiology Blood cultures 2 pending. . X-Rays, CTs and MRIs X-RAY CHEST ONE VIEW, PORTABLE IMPRESSION: Pulmonary edema pattern, mild cardiomegaly. Mild acute CHF. Dictated by: Milton Bustos M.D. on 03/04/2017 at 19:11 . 12-lead ECG EKG: Sinus tachycardia, heart rate 116, left axis, normal intervals, normal R- wave progression, baseline artifact, no pathological Q waves or acute ischemic changes such as ST elevation or depression. . Assessment & Plan Jono Mayfield is a 71-year-old male with a past medical history significant for hypertension, hyperlipidemia, gout, prostate cancer status post radioactive seed implantation, hypothyroidism, saddle embolus on warfarin, and recently diagnosed large lung mass who presented to [facility] emergency Department for worsening shortness of breath. 1. Acute hypoxemic respiratory failure, present on admission. Active. - The patient presented with acute worsening shortness of breath, tachypnea (RR 36), tachycardia (122), and cough with large lung mass concerning for post- obstructive pneumonia. No leukocytosis or fever. 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 He has been off his warfarin for one day for planned bronchoscopy. - Continue high flow oxygen to keep oxygen saturation between 88-92%. - Continue Duonebs and albuterol nebs every 2 hours as needed for shortness of breath/wheeze. - Continue Zosyn IV 3.375 g every 8 hours for probable post-obstructive pneumonia. Cultures pending. - Chest x-ray demonstrated pulmonary edema pattern and mild cardiomegaly, as above. May consider furosemide if hypoxia worsens. - Ordered CTA to assess for possible central/saddle pulmonary emboli. 2. SIRS secondary lung mass vs post obstructive pneumonia, present on admission. Active. - The patient presented with acute worsening shortness of breath, tachypnea (RR 36), tachycardic (122), and cough, with large lung mass concerning and also concern for post-obstructive pneumonia. No leukocytosis or fever. - Early goal-directed therapy met including: Broad-spectrum IV antibiotics and early fluid resuscitation. 3. Post-obstructive pneumonia, present on admission. Active. - The patient presented with acute worsening shortness of breath, tachypnea (RR 36), tachycardic (122), and cough, with large lung mass. No leukocytosis or fever. - Chest x-ray demonstrated pulmonary edema pattern and mild cardiomegaly, as above. - CTA ordered and pending. - Pro-calcitonin elevated at 0.36. Continue to trend daily. - Ordered pneumonia workup including: blood cultures 2, sputum Gram stain and culture if obtainable, and strep pneumoniae and legionella urine antigens. - Ordered MRSA screen. - Tylenol and hydrocodone as needed for fever and pain, respectively. - Started Zosyn 3.375 g every 8 hours. 4. Recently diagnosed large lung mass, present on admission. Active. - Patient will be nothing by mouth after midnight for planned bronchoscopy tomorrow with Dr. Root. - Decrease methylprednisolone from 125 mg to 60mg every 6 hours. - Continue high flow oxygen to keep oxygen saturation between 88-92%. - Ordered oncology consultation with Dr. Katie forte oncologist. 5. History of saddle embolus on warfarin. - The patient stopped warfarin a day ago for planned bronchoscopy. - Initial INR subtherapeutic at 1.51. Continue warfarin with dosing per pharmacist once bronchoscopy is completed. - Ordered CTA to assess for possible central/saddle pulmonary emboli. 6. Thrombocytopenia, acuity unknown, present on admission. Active. - Likely secondary to bone marrow suppression from lung carcinoma. - Initial platelet count 42. - Ordered 1 unit of platelets to be transfused. - Continue to monitor platelet count daily. 7. Anemia, acuity unknown, present on admission. Active. - Likely secondary to bone marrow suppression from lung carcinoma. - Initial hemoglobin 11.5. -The patient is hemodynamically stable and there are no signs of bleeding. - Continue to monitor hemoglobin and hematocrit daily. Chronic problems: 8. Gout, not present on admission. Stable. - Continue allopurinol 100 mg daily. 9. Hypertension, present on admission. Stable. - Continue lisinopril 10 mg daily. 10. Hyperlipidemia, present on admission. Stable. - Continue lovastatin 20 mg daily at bedtime. 11. Insomnia, present on admission. Stable. - Continue lorazepam 0.5 mg as needed for insomnia. 12. Hypothyroidism, present on admission. Stable. - The patient would like to continue taking his natural pork thyroid supplement 190 mg daily please verify with pharmacy. - Ordered TSH, pending. PRN antiemetics: Zofran and Maalox. PRN bowel regimen: Senna and MiraLAX. PRN analgesics: Tylenol and hydrocodone. Disposition: Patient had bronchoscopy with biopsy today, pulmonology is working up cancer in the lung, and we are treating post obstructive pneumonia. Due to the complexity of case and continued need for care, length of stay is uncertain at this time. . VTE Prophylaxis: SCDs Resuscitation Status: CPR: Attempt Resuscitation Attending Statement The patient was seen and examined together with Dr. Carrasquillo on 03/05/2017 and I agree with the history, exam and plan as outlined in the note above. . Jim Carrasquillo DO Mar 05, 2017 15:19 Jere Self MD Mar 06, 2017 17:32
[2017-03-05] MEDS ORDERED: Lidocaine Topical 2% 30 mL Jelly ONE (15:21)
[2017-03-05] MEDS ORDERED: Lidocaine PF 2% 10 mL Inj ONE (15:21)
--- NOTE | 2017-03-05 16:18 | PCM.HPANE ---
Patient Data Surgeon Admitting Provider:Farheen Goodson DO Attending Provider:Jere Self MD Primary Care Physician:Jese Cai MD Other Provider: Reason for Visit Lung Cancer, Shortness Of Breath Ht/WT & BMI Height (Feet): 5 Height (Inches): 8.00 Weight (Kilograms): 91.600 Body Mass Index 30.61 Allergies Coded Allergies: No Known Allergies (Unverified , 03/04/17) Past Anesthesia History Anesthesia History: Denies:: Abnormal Airway, Anesthesia Reactions, Difficult Intubation, Fam Anesthesia Reaction, Fam Malignant Hypertherm, Malignant Hyperthermia Diabetes History Hx Diabetes?: No MRSA MRSA: No Medications Reported Medications [NOW brand diet supp] No Conflict Check1 Capsule PO BID 03/04/17 Lactobacillus Combo No.11 (Probiotic)1 Each Cap.[email or web address] Each PO BID 03/04/17 Krill Oil 500 Mg [id number] Mg PO DAILY 03/04/17 Cholecalciferol (Vitamin D3) (Vitamin D3)2,000 Unit Capsule5,000 Unit PO DAILY 03/04/17 Lovastatin 20 Mg [id number] Mg PO HS #90 03/04/17 Allopurinol 100 Mg [id number] Mg PO HS #90 03/04/17 Amlodipine 5 Mg Tablet5 Mg PO HS #30 03/04/17 Warfarin Sodium 7.5 Mg Tablet7.5 Mg PO Wed 30 Days Ref 0 03/04/17 Warfarin Sodium (Jantoven)5 Mg Tablet5 Mg PO ALL OTHER DAYS #30 03/04/17 Thyroid,Pork (Nature-Throid)162.5 Mg [id number] Mg PO HS #90 03/04/17 Prednisone (PredniSONE)10 Mg Hegxph78 Mg PO DAILY #20 03/04/17 Albuterol Neb Soln 2.5 Mg/3 Ml Vial.neb1 Neb INH Q4H PRN For Shortness of Breath #525 03/04/17 Lorazepam 0.5 Mg Tablet1 Tab PO BID PRN ANXIETY OR SLEEP #90 03/04/17 History History of ENT Problems?: Yes HEENT History: Positive for:: Dysphagia (occasional spastic espospagus) Sinus Problem Denies:: Abnormal Airway Cataracts Difficult Intubation Glaucoma Hearing Problem TMJ Denture Type: None Teeth Condition: Within Normal Limits Hx of Heart Problems?: Yes Cardiovascular History: Positive for:: Hypertension Denies:: AICD Abdominal Aortic Aneurism Atrial Fibrillation Cardiac Surgery Chest Pain Congestive Heart Failure Coronary Artery Disease Edema Heart Murmur Irregular Heartbeat Pacemaker Peripheral Vascular Rheumatic Fever Thrombophlebitis Valvular Heart Disease Hx of Respiratory Problem?: Yes Respiratory History: Positive for:: Asthma (borderline) COPD Cough Dyspnea (in last 6 months) Emphysema Hemoptysis (in recent months) Oxygen Administration Pneumonia Pulmonary Embolism Use of Inhalers / NEBS Denies:: Chest Surgery Tuberculosis Use of C-PAP Machine Hx Neurologic Problems?: Yes Neurological History: Positive for:: Headaches (Migraines d/t TMJ) Denies:: Alzheimer's Disease CVA Dementia Dizziness Multiple Sclerosis Parkinson's Disease Peripheral Neuropathy Seizures TIA Hx of GI Problems?: Yes Gastrointestinal History: Denies:: Cirrhosis Diverticulitis Gall Bladder Disease Gastroesphageal Reflux Gastrointestinal Bleeding Heartburn Hepatitis Hiatal Hernia Liver Disease Rectal Bleeding Hx of Problems?: No Genitourinary History: Denies:: HX of Hemodialysis Kidney Stones Urinary Tract Infection HX of Peritoneal Dialysis: No Male Hx: Positive for:: Prostate Problems (prostate CA) Denies:: Scrotal Mass Testicular Surgery Skin History: Denies:: History Skin Disorders? Pressure Ulcers Hx Musculoskeletal Problems?: No Musculoskeletal History: Denies:: Back Injury Degenerative Joint Fibromyalgia Joint Replacement Musculoskeletal Trauma Myasthenia Gravis Osteoarthritis Rheumatoid Arthritis Systemic Lupus Hx of Psycho/Social Problems?: No Psycho Social History: Denies:: Anxiety Bipolar Disorder Hx Depression Suicide Attempt Hx Surgeries?: Yes (osteomyelitis, inguinal hernia repair, choley, ) Hx Any Other Health Problems?: Yes Other History: Positive for:: Cancer (prostate, lung mass current) Hospitalization (surgeries, visual/headache, PE) Thyroid Disease (hypothyroidism) History Blood Transfusions: Positive for:: Accept Blood Products? Denies:: Blood Transfuse Reaction Blood Transfusions Hx Diabetes: No Hx Alcohol Use: Yes ("a couple per night")Hx Substance Use: No Smoking Status: Former Smoker (1PPD x 20 years, cigars daily until several months ago now uses vaporizer) Unknown if Ever Smoker Have You Smoked inLast 12 mo: No (15 years ago, currenting vaping) Stop/Bang Treated for Sleep Apnea?: No Do You Have a CPAP Machine?: No S-Snoring: Do You Snore Loudly: No T-Tired: feel tired, fatigued: No O-Obsered: Observed not breath: No P-Blood Pressure: treated: Yes B- Body Mass Index > 35 kg/m2: No A- Age over 50: Yes N- Neck Large Circumference: No G- Gender Male: Yes ISABELLE Total Score: 2 Risk Assessment Category Category 1A: Patient has history of documented sleep apnea, and HAS NOT received any narcotic, sedative or anesthesia administration during this stay. Category 1B: Patient has history of documented sleep apnea, and HAS received any narcotic , sedative or anesthesia administration during this stay Category 2: Patient has SUSPECTED Obstructive Sleep Apnea, and HAS received any narcotic , sedative or anesthesia administration during this stay. Category 3: Patient has SUSPECTED Obstructive Sleep Apnea and HAS NOT received narcotic, sedative or anesthesia administration during this stay. Category 4: Outpatient in Procedural Areas with known sleep apnea or who screen positive for High Risk via the STOP/BANG questionnaire. Exam Exam Vital Signs Vital Signs Date Time Temp Pulse Resp B/P Pulse Ox O2 Delivery O2 Flow Rate FiO2 03/05/17 13:03 36.9 98 20 143/73 92 high flow 03/05/17 11:08 106 03/05/17 09:00 Supplement Oxygen 03/05/17 08:27 142/66 87 [place] General Appearance: Alert, Oriented X3, Cooperative, Severe Distress (SOB) HEENT/AIRWAY: MP 2, Neck Movement (FROM), Mouth Opening (3 FBMO) Lungs: Diminished, Coarse, Rhonchorus, Stridor Heart: Regular Rate/Rhythm Meds/Labs/Diagnostics Admission Meds Current Medications Racepinephrine (Racemic Epi 2.25% Inh Soln) 0.5 ml ONCE ONCE NEB Last administered on 03/04/17 18:15; Start 03/04/17 at 18:10; Stop 03/04/17 at 18:11 ; Status DC Methylprednisolone Sodium Succinate (Solu-Medrol Inj) 125 mg ONCE ONCE IVPUSH Last administered on 03/04/17 18:23; Start 03/04/17 at 18:10; Stop 03/04/17 at 18:11; Status DC Albuterol 10 mg 10 mg STK-MED ONCE NEB Last administered on 03/04/17 18:24; Start 03/04/17 at 18:21; Stop 03/04/17 at 18:22; Status DC Sodium Chloride (Normal Saline) 250 ml @ 10 mls/hr Q24H IV Last administered on 03/05/17 00:19; Start 03/04/17 at 21:40 Methylprednisolone Sodium Succinate 125 mg 125 mg Q6 IVPUSH Last administered on 03/05/17 14:10; Start 03/05/17 at 02:30 Piperacillin Sod/ Tazobactam Sod 3.375 gm/Dextrose/ Water 50 ml @ 100 mls/hr OT ONCE IV Last administered on 03/05/17 00:14; Start 03/04/17 at 23:40; Stop 03/05/17 at 00:09; Status DC Piperacillin Sod/ Tazobactam Sod/ Dextrose/Water (Zosyn 3.375 Gm Inj/D5W Minibag Plus) 50 ml @ 12.5 mls/hr Q8 IV Last administered on 03/05/17 09:01; Start 03/05/17 at 08:30 Furosemide (Lasix Inj) 40 mg OT ONCE IVPUSH Last administered on 03/05/17 05: 37; Start 03/05/17 at 05:00; Stop 03/05/17 at 05:01; Status DC Labs Test 03/04/17 17:48 03/04/17 18:09 03/05/17 03:55 03/05/17 04:30 Urine Color Straw (YELLOW) Urine Appearance Turbid (CLEAR,HAZY) Urine pH 5.5 (5.0-8.0) Urine Specific [place] 1.025 (1.003-1.035) Urine Protein 30mg/dL (NEG,TRACE) Urine Glucose (UA) Negativemg/dL (NEGATIVE) Urine Ketones Negativemg/dL (NEGATIVE) Urine Occult Blood Negative (NEGATIVE) Urine Nitrite Negative (NEGATIVE) Urine Bilirubin Negative (NEGATIVE) Urine Urobilinogen Normalmg/dL (NORMAL) Urine Leukocyte Esterase Negative (NEGATIVE) Urine RBC 0-2/hpf (0-2) Urine WBC 0-5/hpf (0-5) Urine Epithelial Cells Occasional/hpf (NONE-MOD) Urine Crystals Amorphous urates (NONE Urine Bacteria None/hpf (NONE-FEW) Urine Hyaline Casts None/lpf (NONE) Urine Granular Casts None seen (NONE SEEN) Urine Waxy Casts None seen (NONE SEEN) Urine Red Blood Cell Casts None seen (NONE SEEN) Urine White Blood Cell Casts None seen (NONE SEEN) Urine Mucus None seen (None Seen) Urine Trichomonas None seen (NONE SEEN) Urine Yeast None (NONE SEEN) Urinalysis Comment None Urine Culture Reflexed Not indicated Hold Urine Received (Received) Activated Partial Thromboplast Time 40.8sec (22.8-33.0) Hemoglobin A1c 6.1% (4.8-5.6) Thyroid Stimulating Hormone (TSH) 6.860uIU/mL (0.450-4.500) Hold Rey Top Tube Received (Received) White Blood Count 4.4th/mm3 (3.8-10.1) Red Blood Count 3.44mil/mm3 (4.40-5.80) Hemoglobin 10.8g/dL (13.8-17.2) Hematocrit 31.3% (41.0-50.0) Mean Corpuscular Volume 91.0fL (81-100) Mean Corpuscular Hemoglobin 31.4pg (27.0-35.0) Mean Corpuscular Hemoglobin Concent 34.5% (32.0-37.0) Red Cell Distribution Width 13.6% (12.3-15.4) Platelet Count 80bil/L (150-400) Neutrophils (%) (Auto) 59.8% (40-74) Lymphocytes (%) (Auto) 32.3% (14-46) Monocytes (%) (Auto) 5.0% (4-12) Eosinophils (%) (Auto) 0.9% (0-5) Basophils (%) (Auto) 0.9% (0-3) Prothrombin Time 14.0sec (8.1-12.5) Prothromb Time International Ratio 1.30ratio Sodium Level 137mEq/L (134-144) Potassium Level 4.1mEq/L (3.5-5.2) Chloride Level 100mEq/L (97-108) Carbon Dioxide Level 22mmol/L (18-29) Blood Urea Nitrogen 24mg/dL (8-27) Creatinine 0.79mg/dL (0.76-1.27) Estimat Glomerular Filtration Rate 102mL/min (>59) Glucose Level 173mg/dL (60-99) Calcium Level 9.3mg/dL (8.5-10.1) Magnesium Level 2.3mg/dL (1.6-2.6) Total Bilirubin 0.8mg/dL (0.0-1.2) Aspartate Amino Transf (AST/SGOT) 53U/L (0-50) Alanine Aminotransferase (ALT/SGPT) 26U/L (0-44) Alkaline Phosphatase 99U/L (25-160) Total Protein 7.6g/dL (6.4-8.4) Albumin 3.6g/dL (3.4-5.0) Procalcitonin 0.29ng/mL (0.00-0.08) Free Thyroxine 0.59ng/dL (0.82-1.77) Urine Legionella pneumophilia Ag Negative (Negative) Plan Impression Patient chart reviewed, patient interviewed and anesthestic plan with risks, benefits, and alternatives discussed, and informed consent obtained. NPO per Anesth. Guidelines: Yes ASA Physical Status: ASA4 Plus Emergency Anesthetic Plan: GA, MAC Bene/Risks/Altern/Consents: Yes HP Complete Prior to Induction: Yes Other I had a long conversation with Dr. Root, the patient, and his . We discussed the advantages and disadvantages of doing the procedure along with the anesthesia. The patient was adamant that the procedure with lung biopsies be done. However, after a discussion of what an intubation would entail including postoperative ventilation with sedation/restraints for an unknown period of time - the patient wanted us to do everything we could not to intubate him. He expected his saturations to drop during the procedure and to have some increased SOB, but he asked that we really make every effort and try and long as possible not to intubate him. He also was OK with minimizing the sedation during the procedure if it meant not intubating him. I spoke with Dr. Root and obtained a second opinion from my partner Dr. Hernandez [place], prior to proceeding. They both agreed with the plan and we decided to proceed. Go Maria MD Mar 05, 2017 16:18
[2017-03-05] MEDS ORDERED: Lactated Ringer's 1,000 ML IV SCH (16:21)
[2017-03-05] MEDS ORDERED: Lactated Ringer's 500 ML IV PRN (16:21)
[2017-03-05] MEDS ORDERED: Phenylephrine 10,000 mCg/mL Inj IVPUSH PRN (16:25)
[2017-03-05] MEDS ORDERED: Albuterol-Ipratropium 3 mL Inhalation Solution NEB PRN (16:25)
[2017-03-05] MEDS ORDERED: Atropine 0.4 mg/mL Inj IVPUSH PRN (16:25)
[2017-03-05] MEDS ORDERED: Epinephrine Racemic 2.25% 0.5 mL Inhalation Solution NEB PRN (16:25)
[2017-03-05] MEDS ORDERED: EPHEDrine Sulfate 50 mg/mL Inj IVPUSH PRN (16:25)
--- NOTE | 2017-03-05 16:40 | DRSVH ---
PROCEDURE: X-RAY CHEST ONE VIEW, PORTABLE ([id number]) INDICATIONS: s/p bronch with right lung biopsy. r/o pneumo TECHNIQUE: One view of the chest was acquired. COMPARISON: [facility], CT, CT ANGIO CHEST PE, 03/04/2017, 22:41. [facility] , CR, XR CHEST 1VW (PORTABLE), 03/04/2017, 18:46. FINDINGS: Surgical changes and devices: None. Lungs and pleura: There is a large right hilar mass. The right main bronchus is truncated, likely se condary to obstruction. Bilateral pulmonary opacities are present, compatible with superimposed pneum onia. There may be a small right pleural effusion. No pneumothorax. Mediastinum: Mediastinal contours appear normal. Heart size is normal. Bones and chest wall: No suspicious bony lesions. Overlying soft tissues appear unremarkable. IMPRESSION: 1. Large right hilar mass. 2. Suspect superimposed bilateral pneumonia. 3. Possible small right effusion. Dictated by: Kendra Rodarte M.D. on 03/05/2017 at 16:36 Approved by: Kendra Rodarte M.D. on 03/05/2017 at 16:39
--- NOTE | 2017-03-05 16:48 | ENDO ---
[address] [address] ENDOSCOPY PROCEDURE PATIENT: KELLY DENSON : 1945 MR#: [id number] ADMIT: 03/04/2017 JOB ID: [id number] PROCEDURE PERFORMED: Bronchoscopy. DATE OF SERVICE: 03/05/2017 PERFORMED BY: Zulema Root MD, pulmonary medicine. Indication: Right lung mass. Informed consent was obtained from the patient after risks and benefits of the procedure were discussed. The patient was severely hypoxic, requiring 60% FiO2 on high-flow nasal cannula prior to the procedure, so Anesthesiology assistance was requested for sedation during the procedure. Please refer to separate note by Dr. Maria regarding medications and anesthesia. DESCRIPTION: The patient was asked to gargle lidocaine and additional lidocaine was administered via atomizer to the oropharynx. The patient was then given a small dose of IV ketamine and the scope was passed through the mouth. He was sat relatively upright for the procedure to minimize risk of respiratory decompensation. Scope was passed through the mouth and epiglottis was visualized. Additional lidocaine was administered to the epiglottis and vocal cords. The scope was passed through the cords into the trachea. We proceeded with additional lidocaine in this area as well and did a brief bilateral airway inspection. There was diffuse erythema and petechiae in both airways. On the right side, however, the airways were edematous with mucosal swelling, abnormality that was consistent with tumor involving the right mainstem and bronchus intermedius. There was mucosal ulceration, some areas of bleeding, and nodularity extending all the way to the distal airways. Since we were limited on time because of his respiratory status, we proceeded to do biopsies in the right bronchus intermedius, mostly in the bronchus intermedius. We did at least 8-10 biopsies with at least eight good samples obtained. There was a small amount of bleeding which subsided with administration of topical epinephrine. Toward the end of the procedure, the patient began to desaturate at the very last biopsy into the 80s , and at this point, additional epinephrine was administered and the scope was withdrawn. SAMPLES: Right mainstem and bronchus intermedius biopsies x10, endobronchial. FINDINGS: Diffuse erythema and petechiae of bilateral airways, right mainstem, and bronchus intermedius, with significant mucosal edema, erythema, and ulceration with tumor involvement throughout that seemed worse more distally. COMPLICATIONS: Desaturation to the 70s and 80s postprocedure. He is being monitored in PACU and a postprocedure chest x-ray is pending at this time. We placed him on BiPAP for respiratory support since he continued to desat on 100% FiO2 on high-flow nasal cannula. The plan is to transfer him to ICU for additional monitoring. Patient would like to avoid intubation as much as possible and we are trying to do that at this point. SUAD
--- NOTE | 2017-03-05 19:36 | NUR ---
Transfer to CCU/oxygenation/anxiety Patient arrived in CCU at 1745 today. Patient denied having any pain except some through soreness. Oxygen saturation on BIPAP 100% settings was 8788%- MD aware and oxygenation level was acceptable per MD statement. Patient to remain on BIPAP settings until am and father evaluation by MD. Contact MD if oxygenation below 86% and sustained. RR in mid to high 20s and heart rate sinus tachycardia 120-130 with stable BP. Hold all anticoagulation medication until patient seen by MD in AM per verbal orders. Patient had periods of increased anxiety consulted with MD patient was medicated with Ativan 0.5mg PO X1 at report time. operation shift supervisor RN to evaluate patients response to medication.
[2017-03-06] VITALS (11 sets, daily range): BP systolic 131–192; BP diastolic 71–97; PULSE 111–123; RESP 29–44; O2SAT 80–87
[2017-03-06] MEDS: Piperacillin-Tazo 3.375 Gm Inj 3.375 GM in Dextrose 5% Minibag Plus 50 ML IV SCH ×4 (01:18→23:51)
[2017-03-06] MEDS: MethylprednisoLONE Sodium Succinate 62.5 mg/mL 2 mL Inj IVPUSH SCH ×3 (03:03→21:49)
[2017-03-06 06:19] LABS: BASOPHILS % (AUTO) 0.4 % (0-3); EOSINOPHILS % (AUTO) 0.2 % (0-5); MONOCYTES % (AUTO) 4.8 % (4-12); Mean Corpuscular Hemoglobin 31.1 pg (27.0-35.0); Mean Corpuscular Volume 90.6 fL (81-100); NEUTROPHILS % (AUTO) 63.7 % (40-74); Platelet Count 65 bil/L (150-400)
--- NOTE | 2017-03-06 07:15 | DRSVH ---
PROCEDURE: X-RAY CHEST ONE VIEW, PORTABLE ([id number]) INDICATIONS: 71 year-old male with lung mass. TECHNIQUE: One view of the chest was acquired. COMPARISON: [facility], CR, XR CHEST 1VW (PORTABLE), 03/05/2017, 16:18. [facility], CT, CT ANGIO CHEST PE, 03/04/2017, 22:41. [facility], CR, XR CHEST 1VW (PORTABLE) , 03/04/2017, 18:46. [facility], CR, CHEST 2 VIEW, 09/04/2016, 13:50. FINDINGS: Surgical changes and devices: None. Lungs and pleura: There is new complete right thoracic opacification with volume loss, resulting incr eased right tracheal deviation. Patchy left lung opacities persist. No pleural effusions or pneumotho rax. Mediastinum: Mediastinal contours appear normal. Heart size is unchanged. Bones and chest wall: No suspicious bony lesions. Overlying soft tissues appear unremarkable. IMPRESSION: 1. Interval development of complete right lung collapse, secondary to right main bronchus occlusion f rom previously noted right hilar region mass. 2. Persistent patchy left lung opacities may represent pneumonia versus pulmonary edema. Dictated by: Jason Coon M.D. on 03/06/2017 at 7:08 Approved by: Jason Coon M.D. on 03/06/2017 at 7:14
--- NOTE | 2017-03-06 07:26 | NUR ---
Respiratory/Anxiety Pt on bipap w/ fio2 100%, I/E 31/01, 02sats 86-88% tachypneic RR 28-32, tachycardic HR 125s, pt claustrophobic and would like to be switched to high flow 02, Dr. Root called in and updated of pts status with new order, switched to high flow 02 60L/100% for about 30 minutes, pt unable to tolerate and desats down to 79-80's %, re-placed bipap on previous settings. Pt refused most HS po meds due to SOB. Pt anxious and unable to sleep, at shift change was given 0.5 mg po ativan (ineffective), pt states he takes tylenol pm for sleep and melatonin, given benadryl 25 mg IV (ineffective), given melatonin 1 mg , still unable to sleep, Pt feeling exhausted and tiring out this am, given 0.5mg IV ativan, Pt dozed off briefly. Received a call form [employer] to have attending MD to take a look at AM cxr, Notified Dr Edwards of AM X-ray changes.
--- NOTE | 2017-03-06 09:33 | PCM.PNMED ---
Subjective Date of Service Mar 06, 2017 Arturo Mayfield is a 71-year-old male with a past medical history significant for hypertension, hyperlipidemia, gout, prostate cancer status post radioactive seed implantation, hypothyroidism, saddle embolus on warfarin, and recently diagnosed large lung mass who presented to [facility] emergency Department for worsening shortness of breath. Nursing reports patient remained on BiPap in the mid to high 80's overnight in the CCU after the bronchoscopy with the assist of anesthesia. Patient seen and examined. sitting up in bed on BiPap. Unable to complete full sentences secondary to shortness of breath and BiPap. Denies any pain at this time. Is having good urine output, but has not had a bowel movement in the last 3 days. ROS reviewed and otherwise negative unless noted above. Exam Vital Signs Vital Sign - Last Date Time Temp Pulse Resp B/P Pulse Ox O2 Delivery O2 Flow Rate FiO2 03/06/17 08:00 CPAP/BIPAP 03/06/17 08:00 115 03/06/17 08:00 36.0 34 168/79 84 100 03/05/17 20:46 60 Intake and Output 03/05/17 03/05/17 03/06/17 Cumulative From/Thru 15:00 23:00 07:00 03/04/17 17:35 - 03/06/17 06:21 Intake Total 144 ml 1007 ml 2038 ml Output Total 1250 ml 600 ml 2375 ml Balance -1106 ml 407 ml -337 ml Intake Oral 50 ml 75 ml 325 ml IV Total 94 ml 932 ml 1434 ml Platelets 279 ml Output Urine Total 1250 ml 600 ml 2375 ml # Voids 3 3 # Bowel Movements 0 0 Exam Constitutional: Awake, alert and oriented x4, short of breath and unable to complete full sentences. In mild respiratory distress and supplemented by BiPap oxygen. Head: normocephalic and atraumatic Eyes: EOMI, no scleral icterus Heart: regular rate and rhythm Lungs: Diffuse wheeze throughout, diminished breath sounds on the left side. no rales or rhonchi. Patient using accessory respiratory muscles to breath with the assistance of BiPap ABD: soft, nontender, bowel sounds present throughout Musculoskeletal: moves all four extremities appropriately. Neuro: CN II-XII intact. No focal deficits. Skin: warm, dry, no rash Psych: appropriate mood and affect. IVs and Medications Medications Reviewed: Medications were reviewed in detail Medications High Risk IV Medications: [facility] Item Value Date Time Red Blood Count 3.50 mil/mm3 L 03/06/17599 Mean Corpuscular Volume 90.6 fL 03/06/17599 Mean Corpuscular Hemoglobin 31.1 pg 03/06/17599 Mean Corpuscular Hemoglobin Concent 34.4 % 03/06/17599 Red Cell Distribution Width 13.6 % 03/06/17599 Neutrophils (%) (Auto) 63.7 % 03/06/17599 Lymphocytes (%) (Auto) 28.7 % 03/06/17599 Monocytes (%) (Auto) 4.8 % 03/06/17599 Eosinophils (%) (Auto) 0.2 % 03/06/17599 Basophils (%) (Auto) 0.4 % 03/06/17599 Estimat Glomerular Filtration Rate 107 mL/min 03/06/17599 Calcium Level 9.4 mg/dL 03/06/17599 Total Bilirubin 1.4 mg/dL H 03/06/17599 Aspartate Amino Transf (AST/SGOT) 60 U/L H 03/06/17599 Alanine Aminotransferase (ALT/SGPT) 29 U/L 03/06/17599 Alkaline Phosphatase 111 U/L 03/06/17599 Total Protein 7.3 g/dL 03/06/17599 Albumin 3.3 g/dL L 03/06/17599 Procalcitonin 0.26 ng/mL H 03/06/17599 Result Diagram: 03/06/1759903/06/17599 Microbiology Blood cultures 2 pending. . X-Rays, CTs and MRIs X-RAY CHEST ONE VIEW, PORTABLE IMPRESSION: Pulmonary edema pattern, mild cardiomegaly. Mild acute CHF. Dictated by: Milton Bustos M.D. on 03/04/2017 at 19:11 . 12-lead ECG EKG: Sinus tachycardia, heart rate 116, left axis, normal intervals, normal R- wave progression, baseline artifact, no pathological Q waves or acute ischemic changes such as ST elevation or depression. . Assessment & Plan Jono Mayfield is a 71-year-old male with a past medical history significant for hypertension, hyperlipidemia, gout, prostate cancer status post radioactive seed implantation, hypothyroidism, saddle embolus on warfarin, and recently diagnosed large lung mass who presented to [facility] emergency Department for worsening shortness of breath. Acute hypoxemic respiratory failure, present on admission. Active. - The patient presented with acute worsening shortness of breath, tachypnea (RR 36), tachycardia (122), and cough with large lung mass concerning for post- obstructive pneumonia. No leukocytosis or fever. 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 He has been off his warfarin for one day for planned bronchoscopy. - Continue high flow oxygen to keep oxygen saturation between 88-92%. Patient currently on BiPap FiO2 100% - Continue Duonebs and albuterol nebs every 2 hours as needed for shortness of breath/wheeze. - Stop Zosyn IV Patient has had a normal white count for 3 days, afebrile, cultures negative, no signs of infection, SOB and cough primarily related to lung mass. SIRS secondary lung mass vs post obstructive pneumonia, present on admission. Improving. - The patient presented with acute worsening shortness of breath, tachypnea (RR 36), tachycardic (122), and cough, with large lung mass concerning and also concern for post-obstructive pneumonia. No leukocytosis or fever. - Early goal-directed therapy met including: Broad-spectrum IV antibiotics and early fluid resuscitation. Post-obstructive pneumonia, present on admission. Active. - The patient presented with acute worsening shortness of breath, tachypnea (RR 36), tachycardic (122), and cough, with large lung mass. No leukocytosis or fever. - Chest x-ray demonstrated pulmonary edema pattern and mild cardiomegaly, as above. - CTA showed no PE -Blood cultures negative, urine strep antigen negative, MRSA negative - Tylenol and hydrocodone as needed for fever and pain, respectively. - Stop Zosyn. Patient has had a normal white count for 3 days, afebrile, cultures negative, no signs of infection, SOB and cough primarily related to lung mass. Recently diagnosed large lung mass, present on admission. Active. - Patient was placed back on 125mg PO steroids. Keep dose, and refer to pulmonology for dose adjustments. - Continue high flow oxygen to keep oxygen saturation between 88-92%. - Ordered oncology consultation with Dr. Katie forte oncologist. History of saddle embolus on warfarin. - The patient stopped warfarin a day ago for planned bronchoscopy. - Initial INR subtherapeutic at 1.51. - Hold Warfarin dose per Dr. Root. Patient had friable tissue seen on bronchoscopy that was bleeding prior to procedure. Will hold in order to not exacerbate this bleeding tissue. Thrombocytopenia, acuity unknown, present on admission. Active. - Likely secondary to bone marrow suppression from lung carcinoma. - Initial platelet count 42. Monitoring. - Ordered 1 unit of platelets to be transfused. - Continue to monitor platelet count daily. Anemia, acuity unknown, present on admission. Active. - Likely secondary to bone marrow suppression from lung carcinoma. - Initial hemoglobin 11.5. -The patient is hemodynamically stable and there are no signs of bleeding. - Continue to monitor hemoglobin and hematocrit daily. Chronic problems: Gout, not present on admission. Stable. - Continue allopurinol 100 mg daily. Hypertension, present on admission. Stable. - Continue lisinopril 10 mg daily. Hyperlipidemia, present on admission. Stable. - Continue lovastatin 20 mg daily at bedtime. Insomnia, present on admission. Stable. - Continue lorazepam 0.5 mg as needed for insomnia. Hypothyroidism, present on admission. Stable. - The patient would like to continue taking his natural pork thyroid supplement 190 mg daily please verify with pharmacy. - Ordered TSH, pending. PRN antiemetics: Zofran and Maalox. PRN bowel regimen: Senna and MiraLAX. PRN analgesics: Tylenol and hydrocodone. Disposition: Patient had bronchoscopy with biopsy today, pulmonology is working up cancer in the lung, and we are treating post obstructive pneumonia. Due to the complexity of case and continued need for care, length of stay is uncertain at this time. . VTE Prophylaxis: SCDs Resuscitation Status: CPR: Attempt Resuscitation Attending Statement The patient was seen and examined together with Dr. Carrasquillo on 03/06/2017 and I agree with the history, exam and plan as outlined in the note above. . Jim Carrasquillo DO Mar 06, 2017 09:33 Jere Self MD Mar 06, 2017 17:33
--- NOTE | 2017-03-06 11:12 | PCM.ANEP1 ---
Post Anesthesia PACU Phase 1 Assessment Vital Signs Vital Signs Date Time Temp Pulse Resp B/P Pulse Ox O2 Delivery O2 Flow Rate FiO2 03/06/17 09:36 116 38 149/92 82 100 03/06/17 08:00 CPAP/BIPAP 03/06/17 08:00 115 03/06/17 08:00 36.0 112 34 168/79 84 BiPAP 100 03/06/17 04:00 36.6 115 29 131/97 85 BiPAP 100 03/06/17 04:00 115 Anesthetic Administered: MAC Level of Alertness: Awake, talking DIALLO's with Equal Strength: Yes Pain: No Nausea or Vomiting: No CV Function & Hydration Stable: Yes Airway Device: BiPAP Oxygen Delivery: BiPAP Lungs: Diminished, Coarse, Rhonchorus, Stridor Dermatome Level: Full Sensation PACU Phase 2 Assessment Complications: Yes (need for BiPAP) Follow up Care: Yes Patient Instructions Provided: Yes Comments Dr. Root assumed care of the patient in PACU. She ordered an ABG and obtained an ICU bed where she will continue to care for him. Despite sats in the 80's with BiPAP he was adamant to me that he didn't want to be intubated. I obeyed his wishes. Respiratory therapy present. Nurse board mill supervisor form the ICU present. Go Maria MD Mar 06, 2017 11:12
--- NOTE | 2017-03-06 11:35 | NUR ---
NUTRITION ASSESSMENT: ASSESS:71 YO male admitted with worsening shortness of breath related to large lung mass concerning for post-obstructive pneumonia. Bronchoscopy completed this morning; results pending. Oncology consult with Dr. Wilson ordered related to recently discovered lung mass. PMHx:Hypothyroid, prostate cancer, HTN, dyslipidemia, gout, esophageeal spasm, PE saddle, recently diagnosed large inoperable lung mass with workup pending, insomnia, cholecystectomy. DIET:Heart healthy. PO intake not yet recorded. LABS: Reviewed. BUN 32, Glu 173, A1c 6.1, Total Bili 1.4, AST 60, Alb 3.3. MEDICATIONS: Reviewed. Solu-medrol, armour thyroid, melatonin, coumadin. NUTRITION FOCUSED PHYSICAL ASSESSMENT: GI symptoms / stool: No BM reported.Matt: 16. Skin Integrity: No issues reported. ANTHROPOMETRICS: Current Wt: 91.6 kgBMI: 30.0 kg/m2. Admit weight: 92.73 kg. IBW: 68.4 kg (136% IBW) ESTIMATED NEEDS (CLASS I OBESITY, RECENTLY DIAGNOSED LUNG MASS): Calories: 1710 - 2052 kcal (25 - 30 kcal / kg IBW) Protein: 123 - 137 g protein (1.8 - 2.0 g / kg IBW) NUTRITION DIAGNOSIS: 1)Potentially increased nutrient needs related to lung mass, pending workup. INTERVENTION: 1) Will add supplements if lung mass determined to be malignant. 2) Will provide oncology nutrition consult again if lung mass determined to be malignant and treatment desired. MONITOR/EVALUATE: Diet advance tolerance, PO intake, cancer workup, labs, GI/nutrition status. Follow up per moderate nutrition risk guidelines.
--- NOTE | 2017-03-06 11:38 | PROG NOTE ---
[address] [address] PROGRESS NOTE PATIENT: KELLY DENSON : 1945 MR#: [id number] ADMIT: 03/04/2017 JOB ID: [id number] DATE: 03/06/2017 PULMONARY CRITICAL CARE PROGRESS NOTE: The patient is a 71-year-old man with history of saddle pulmonary embolism in August 2016, subsequently found to have a large right hilar lung mass suspicious for malignancy, presenting with acute hypoxic respiratory failure. INTERVAL HISTORY: He underwent bronchoscopy yesterday evening that was quite eventful. Prior to the bronchoscopy he was on 60% high-flow nasal cannula and during bronchoscopy and after this had to be increased to 100% despite minimal sedation and a pretty short 10-minute procedure. He was moved to the ICU on 100% BiPAP, saturating in the low to mid 80s. He has sustained that overnight, although he remains tachypneic. His goal was to avoid intubation if at all safely possible and we are still working on that. The chest x-ray this morning, however, showed complete white-out of the right lung. REVIEW OF SYSTEMS: Dyspnea. Not much cough or sputum. No fevers, chills. PHYSICAL EXAMINATION: Vital signs reviewed. T-max 36.6, pulse 112, respirations 34, BP 168/79, sats 84% on 100% BiPAP. General: He is alert, sitting up in bed, in mild distress from tachypnea on BiPAP mask. Chest: Coarse bilateral breath sounds and wheezes. LABORATORIES: Reviewed. WBC 5.6, hemoglobin 10.9, platelets 65. Chemistry reviewed. Procalcitonin this morning is 0.26, stable compared to prior. Cultures: No new growth. IMAGING: Chest x-ray showed complete white-out of the right lung with shift of trachea to the same side consistent with lung collapse. Right mainstem bronchus cannot be followed out suggesting there may be a mucus plug in there. ASSESSMENT: 1. Acute hypoxic respiratory failure on 100% BiPAP. 2. Large right hilar lung mass highly suspicious for malignancy, status post bronchoscopy with biopsies on March 05. 3. Submassive pulmonary embolism August 2016 with saddle embolism. On anticoagulation, held for bronchoscopy. 4. Thrombocytopenia. 5. Complete right lung collapse with suspected mucus plug. RECOMMENDATIONS: This 71-year-old man presented initially with saddle PE in August 2016 and no evidence of a lung mass but on a routine followup scan in early February was found to have a 10 cm right hilar mass. He was admitted to the hospital yesterday with severe hypoxic respiratory failure requiring 80% high-flow oxygen. His CT imaging showed that in addition to the right hilar mass he had satellite nodule from the right as well as infiltrate on the left suggesting infection/pneumonia. He is currently on IV corticosteroids, antibiotics, nebs. His heparin has been on hold for the bronchoscopy and after because of his relative instability and now right lung collapse most likely due to a mucus plug. I would like to continue to avoid anticoagulation at this point because if he bleeds from this area this would only make his oxygenation worse than it already is. He remains pretty tenuous from a respiratory standpoint, but seems to be maintaining saturations in the mid 80s on 100% BiPAP with respiratory rate in the 30s. He is still motivated to avoid intubation as long as he can but we had a jin conversation today that if he continues to worsen, or we are not able to open up this right lung with conservative measures, we may have to consider intubation. At this point the plan is to continue chest physiotherapy to the right lung to try to get this mucus plug out. The patient has just coughed up some mucus and I think this will help. I reviewed the films a couple of times with the radiologist and they agree that this is collapsed, not effusion or pneumothorax. I also looked at the chest myself with an ultrasound and I do not see enough fluid to suggest that the effusion is a significant contributor. Discussed at length with the patient and his . They requested oncology involvement to see if chemotherapy is an option at this stage. I called Dr. Mitchell, who is on-call, who recommended against initiating empiric chemotherapy without tissue diagnosis. I also have a call out to the on-call pathologist for [facility], Dr. Bloom, and requested an urgent read if possible over the weekend; I am yet to hear back. TIME: Critical care time 90 minutes.
[2017-03-06] MEDS: LORazepam 0.5 mg Tablet PO PRN (17:15)
--- NOTE | 2017-03-06 17:57 | NUR ---
Respiratory/Hemodynamics/PO/Anxiety On Bipap 100% FIO2. Tachypneic, Tachycardic, RR 30s. Using accessory muscles to breathe. Sats 83-87% All day. MD aware of all. Monitoring closely. Chest PT added and given by RT q 4 hours today. Patient starting to cough up small amount of thick blood streaked sputum. Oral suctioning PRN. Lung sounds markedly decreased/absent on the right. Sat drop to 70s with exertion. Sats drop to 70s when placed on HF O2 to attempt eating ice cream. BP 140s-160s/70s-90s. Voiding per urinal (540) this shift. IV at TKO. No BM. Has only eaten a few bites of ice cream due to SOB. Independent with turning in bed. Bed bath done. frequent oral care done. Medicated x1 0.5 mg Ativan for "anxiety". Again, MD aware of all.
[2017-03-06] MEDS: 0.9% Sodium Chloride 250 ML IV SCH (21:40)
[2017-03-06 23:34] LABS: APPEARANCE,URINE CLEAR (CLEAR,HAZY); COLOR,URINE YELLOW (YELLOW)
[2017-03-06 23:35] LABS: OCCULT BLOOD,URINE MODERATE (NEGATIVE); PH,URINE 5.5 (5.0-8.0); UROBILINOGEN,URINE NORMAL (NORMAL)
--- NOTE | 2017-03-06 23:45 | NUR ---
Respiratory Pt appears tachypneic. He desats with min exertion such as urinating. Obtained order to place [facility] Cath to help facilitate O2 consumption. FC inserted. Report given and care transferred to the receiving RN (Alton) at the bedside.
[2017-03-07] VITALS (11 sets, daily range): BP systolic 91–155; BP diastolic 57–82; PULSE 110–126; RESP 24–31; O2SAT 79–98
--- NOTE | 2017-03-07 01:19 | NUR ---
Anxiety/Resp 0000 - Patient anxious and restless, one time dose 0.5mg Ativan given, patient calmed down for a little bit but anxiety increased with an hour of Dose administration. 0100 - Patient sats 77-78% Dr. Goodson notified. Dr Goodson stated to page Dr. Ivett christopher and notified of patient condition, Morphine 2mg ordered for dyspnea, sats 82-83%, BP 174/94, HR 124 and RR 36-40 before Morphine. 0115 - Administered Morphine 2mg IVP and sats remain 82-83%, BP decreased to 136/67, HR 119 and RR 29-30. 0125 - Patient resting and calm at, sleeping and no anxiety noted. Addendum: 03/07/17 at 0638 by ROSA MARIA MENEZES RN [id number] - 2mg Morphine given resting and calm sats 82-84% 0620 - Patient stated he is getting anxious and sats decreasing 77-79%, 2mg morphine given and sats 84% at 0640. No distress noted
[2017-03-07 03:35] LABS: BASOPHILS % (AUTO) 1.1 % (0-3); EOSINOPHILS % (AUTO) 0.3 % (0-5); MONOCYTES % (AUTO) 3.9 % (4-12); Mean Corpuscular Volume 91.1 fL (81-100); NEUTROPHILS % (AUTO) 61.7 % (40-74); Platelet Count 54 bil/L (150-400)
[2017-03-07 03:54] LABS: INR 1.25 ratio
--- NOTE | 2017-03-07 08:32 | ABG ---
DateTimeAnalyzed 08:23:22 -_ pH ____7.490 - 7.320 7.420 pCO2 ___41.3__ -mmHg 41.0 51.0 pO2 ___47.6__ -mmHg 24.0 40.0 HCO3- ___31.4__ -mmol/L 22.0 26.0 ABE ____7.4__ -mmol/L -2.0 2.0 tHb ___11.2__ -g/dL 12.0 18.0 O2Hb ___83.0__ -% COHb ____2.1__ -% 0.0 1.5 MetHb ____0.0__ -% 0.4 1.5 sO2 ___84.8__ -% FIO2 __100.0__ -% CPAP ___16.0__ -cmH2O PEEP ____9.0__ -cmH2O Drawn By as - Date/Time Notified____ 08:32:00 -_ Spontaneous_RR 32 -b/min Oxygen Device 1 ____BIPAP - Notified By AMS - Notified Whom DR PARIMI - K+ ____3.8__ -mmol/L 3.5 5.0 tO2 ___13.1__ -Vol% Kofi test N/A -
[2017-03-07] MEDS: Piperacillin-Tazo 3.375 Gm Inj 3.375 GM in Dextrose 5% Minibag Plus 50 ML IV SCH ×2 (08:41→16:48)
[2017-03-07] MEDS: MethylprednisoLONE Sodium Succinate 62.5 mg/mL 2 mL Inj IVPUSH SCH ×2 (08:46→20:42)
--- NOTE | 2017-03-07 09:18 | DRSVH ---
PROCEDURE: X-RAY CHEST ONE VIEW, PORTABLE ([id number]) INDICATIONS: Lung mass TECHNIQUE: One view of the chest was acquired. COMPARISON: [facility], CR, XR CHEST 1VW (PORTABLE), 03/06/2017, 5:21. FINDINGS: Surgical changes and devices: None. Lungs and pleura: There is complete opacification of the right hemithorax, as before. Diffuse interst itial opacities are redemonstrated throughout the left lung. Mediastinum: There is rightward tracheal deviation. Heart size is normal. Bones and chest wall: No suspicious bony lesions. Overlying soft tissues appear unremarkable. IMPRESSION: Unchanged right pulmonary opacification and left pulmonary edema. Dictated by: Dorina Betancourt M.D. on 03/07/2017 at 9:16 Approved by: Dorina Betancourt M.D. on 03/07/2017 at 9:17
[2017-03-07] MEDS ORDERED: Propofol 10,000 mCg/mL 100 mL Inj ONE (10:15)
[2017-03-07] MEDS ORDERED: Sodium Chloride LOK Flush 10 mL Syringe IVFLUSH PRN ×2 (10:20)
[2017-03-07] MEDS ORDERED: fentaNYL-PF 50 mCg/mL 2 mL Inj IVPUSH PRN (10:30)
[2017-03-07] MEDS: Propofol Inj 1,000,000 MCG in IV Premix 1 EACH IV SCH ×4 (10:44→20:42)
[2017-03-07] MEDS ORDERED: Lidocaine Topical 2% 30 mL Jelly ONE (10:49)
[2017-03-07] MEDS ORDERED: Lidocaine PF 2% 10 mL Inj ONE (10:50)
--- NOTE | 2017-03-07 10:56 | PCM.HPANE ---
Patient Data Date of Service: Mar 07, 2017 Surgeon Admitting Provider:Farheen Goodson DO Attending Provider:Jere Self MD Primary Care Physician:Jese Cai MD Other Provider: Reason for Visit Lung Cancer, Shortness Of Breath Ht/WT & BMI Height (Feet): 5 Height (Inches): 8.00 Weight (Kilograms): 86.862 Body Mass Index 30.61 Allergies Coded Allergies: No Known Allergies (Unverified , 03/04/17) Past Anesthesia History Anesthesia History: Denies:: Abnormal Airway, Anesthesia Reactions, Difficult Intubation, Fam Anesthesia Reaction, Fam Malignant Hypertherm, Malignant Hyperthermia Diabetes History Hx Diabetes?: No Current Bedside Blood Glucose: 169 MRSA MRSA: No Medications Reported Medications [NOW brand diet supp] No Conflict Check1 Capsule PO BID 03/04/17 Lactobacillus Combo No.11 (Probiotic)1 Each Cap.[email or web address] Each PO BID 03/04/17 Krill Oil 500 Mg [id number] Mg PO DAILY 03/04/17 Cholecalciferol (Vitamin D3) (Vitamin D3)2,000 Unit Capsule5,000 Unit PO DAILY 03/04/17 Lovastatin 20 Mg [id number] Mg PO HS #90 03/04/17 Allopurinol 100 Mg [id number] Mg PO HS #90 03/04/17 Amlodipine 5 Mg Tablet5 Mg PO HS #30 03/04/17 Warfarin Sodium 7.5 Mg Tablet7.5 Mg PO Wed 30 Days Ref 0 03/04/17 Warfarin Sodium (Jantoven)5 Mg Tablet5 Mg PO ALL OTHER DAYS #30 03/04/17 Thyroid,Pork (Nature-Throid)162.5 Mg [id number] Mg PO HS #90 03/04/17 Prednisone (PredniSONE)10 Mg Qiisiw88 Mg PO DAILY #20 03/04/17 Albuterol Neb Soln 2.5 Mg/3 Ml Vial.neb1 Neb INH Q4H PRN For Shortness of Breath #525 03/04/17 Lorazepam 0.5 Mg Tablet1 Tab PO BID PRN ANXIETY OR SLEEP #90 03/04/17 History History of ENT Problems?: Yes HEENT History: Positive for:: Dysphagia (occasional spastic espospagus) Sinus Problem Denies:: Abnormal Airway Cataracts Difficult Intubation Glaucoma Hearing Problem TMJ Denture Type: None Teeth Condition: Within Normal Limits Hx of Heart Problems?: Yes Cardiovascular History: Positive for:: Hypertension Denies:: AICD Abdominal Aortic Aneurism Atrial Fibrillation Cardiac Surgery Chest Pain Congestive Heart Failure Coronary Artery Disease Edema Heart Murmur Irregular Heartbeat Pacemaker Peripheral Vascular Rheumatic Fever Thrombophlebitis Valvular Heart Disease Hx of Respiratory Problem?: Yes Respiratory History: Positive for:: Asthma (borderline) COPD Cough Dyspnea (in last 6 months) Emphysema Hemoptysis (in recent months) Oxygen Administration Pneumonia Pulmonary Embolism Use of Inhalers / NEBS Denies:: Chest Surgery Tuberculosis Use of C-PAP Machine Hx Neurologic Problems?: Yes Neurological History: Positive for:: Headaches (Migraines d/t TMJ) Denies:: Alzheimer's Disease CVA Dementia Dizziness Multiple Sclerosis Parkinson's Disease Peripheral Neuropathy Seizures TIA Hx of GI Problems?: Yes Hx of Problems?: No Genitourinary History: Denies:: HX of Hemodialysis Kidney Stones Urinary Tract Infection HX of Peritoneal Dialysis: No Male Hx: Positive for:: Prostate Problems (prostate CA) Denies:: Scrotal Mass Testicular Surgery Skin History: Denies:: History Skin Disorders? Pressure Ulcers Hx Musculoskeletal Problems?: No Musculoskeletal History: Denies:: Back Injury Degenerative Joint Fibromyalgia Joint Replacement Musculoskeletal Trauma Myasthenia Gravis Osteoarthritis Rheumatoid Arthritis Systemic Lupus Hx of Psycho/Social Problems?: No Psycho Social History: Denies:: Anxiety Bipolar Disorder Hx Depression Suicide Attempt Hx Surgeries?: Yes (osteomyelitis, inguinal hernia repair, choley, ) Hx Any Other Health Problems?: Yes Other History: Positive for:: Cancer (prostate, lung mass current) Hospitalization (surgeries, visual/headache, PE) Thyroid Disease (hypothyroidism) History Blood Transfusions: Positive for:: Accept Blood Products? Denies:: Blood Transfuse Reaction Blood Transfusions Hx Diabetes: NoBedside Blood Glucose: 169 Hx Alcohol Use: Yes ("a couple per night")Hx Substance Use: No Smoking Status: Former Smoker (1PPD x 20 years, cigars daily until several months ago now uses vaporizer) Unknown if Ever Smoker Have You Smoked inLast 12 mo: No (15 years ago, currenting vaping) Stop/Bang Treated for Sleep Apnea?: No Do You Have a CPAP Machine?: No S-Snoring: Do You Snore Loudly: No T-Tired: feel tired, fatigued: No O-Obsered: Observed not breath: No P-Blood Pressure: treated: Yes B- Body Mass Index > 35 kg/m2: No A- Age over 50: Yes N- Neck Large Circumference: No G- Gender Male: Yes ISABELLE Total Score: 2 Risk Assessment Category Category 1A: Patient has history of documented sleep apnea, and HAS NOT received any narcotic, sedative or anesthesia administration during this stay. Category 1B: Patient has history of documented sleep apnea, and HAS received any narcotic , sedative or anesthesia administration during this stay Category 2: Patient has SUSPECTED Obstructive Sleep Apnea, and HAS received any narcotic , sedative or anesthesia administration during this stay. Category 3: Patient has SUSPECTED Obstructive Sleep Apnea and HAS NOT received narcotic, sedative or anesthesia administration during this stay. Category 4: Outpatient in Procedural Areas with known sleep apnea or who screen positive for High Risk via the STOP/BANG questionnaire. Exam Exam Vital Signs Vital Signs Date Time Temp Pulse Resp B/P Pulse Ox O2 Delivery O2 Flow Rate FiO2 03/07/17 08:10 120 26 137/82 83 100 03/07/17 08:00 36.7 126 31 138/76 84 BiPAP 100 03/07/17 08:00 126 03/07/17 08:00 CPAP/BIPAP 03/07/17 04:50 37.4 118 28 151/72 83 BiPAP 100 03/07/17 04:50 CPAP/BIPAP 03/07/17 04:46 117 25 155/69 84 100 General Appearance: Alert, Oriented X3, Cooperative, Other (Appearing SOB despite being on [place] O2, speaking in full sentences.) HEENT/AIRWAY: MP 2, Neck Movement (FROM), Mouth Opening (3 FBMO) Lungs: Diminished, Coarse, Rhonchorus, Stridor Heart: Regular Rate/Rhythm Meds/Labs/Diagnostics Admission Meds Current Medications Lorazepam 0.5 mg 0.5 mg ONCE ONCE IVPUSH Last administered on 03/06/17 23:56 ; Start 03/06/17 at 23:50; Stop 03/06/17 at 23:51; Status DC Propofol/Premix (Diprivan Inj/IV Premix) 100 ml @ 2.6 mls/hr Q24H IV Last administered on 03/07/17 10:44; Start 03/07/17 at 10:09 Bedside Blood Glucose: 169 Labs Test 03/04/17 17:48 03/04/17 18:09 03/05/17 03:55 03/05/17 04:30 Hold Urine Received (Received) Activated Partial Thromboplast Time 40.8sec (22.8-33.0) Hemoglobin A1c 6.1% (4.8-5.6) Thyroid Stimulating Hormone (TSH) 6.860uIU/mL (0.450-4.500) Hold [place] Top Tube Received (Received) Magnesium Level 2.3mg/dL (1.6-2.6) Free Thyroxine 0.59ng/dL (0.82-1.77) Urine Legionella pneumophilia Ag Negative (Negative) Test 03/06/17 23:10 03/07/17 02:55 03/07/17 08:25 Urine Color Yellow (YELLOW) Urine Appearance Clear (CLEAR,HAZY) Urine pH 5.5 (5.0-8.0) Urine Specific [place] 1.025 (1.003-1.035) Urine Protein 100mg/dL (NEG,TRACE) Urine Glucose (UA) Negativemg/dL (NEGATIVE) Urine Ketones Negativemg/dL (NEGATIVE) Urine Occult Blood Moderate (NEGATIVE) Urine Nitrite Negative (NEGATIVE) Urine Bilirubin Negative (NEGATIVE) Urine Urobilinogen Normalmg/dL (NORMAL) Urine Leukocyte Esterase Negative (NEGATIVE) Urine RBC 0-2/hpf (0-2) Urine WBC 0-5/hpf (0-5) Urine Epithelial Cells Few/hpf (NONE-MOD) Urine Crystals Amorphous urates (NONE Urine Bacteria Few/hpf (NONE-FEW) Urine Hyaline Casts None/lpf (NONE) Urine Granular Casts None seen (NONE SEEN) Urine Waxy Casts None seen (NONE SEEN) Urine Red Blood Cell Casts None seen (NONE SEEN) Urine White Blood Cell Casts None seen (NONE SEEN) Urine Mucus Present (None Seen) Urine Trichomonas None seen (NONE SEEN) Urine Yeast None (NONE SEEN) Urinalysis Comment None Urine Culture Reflexed Not indicated White Blood Count 7.0th/mm3 (3.8-10.1) Red Blood Count 3.58mil/mm3 (4.40-5.80) Hemoglobin 11.1g/dL (13.8-17.2) Hematocrit 32.6% (41.0-50.0) Mean Corpuscular Volume 91.1fL (81-100) Mean Corpuscular Hemoglobin 31.0pg (27.0-35.0) Mean Corpuscular Hemoglobin Concent 34.0% (32.0-37.0) Red Cell Distribution Width 13.9% (12.3-15.4) Platelet Count 54bil/L (150-400) Neutrophils (%) (Auto) 61.7% (40-74) Lymphocytes (%) (Auto) 29.6% (14-46) Monocytes (%) (Auto) 3.9% (4-12) Eosinophils (%) (Auto) 0.3% (0-5) Basophils (%) (Auto) 1.1% (0-3) Prothrombin Time 13.4sec (8.1-12.5) Prothromb Time International Ratio 1.25ratio Sodium Level 142mEq/L (134-144) Potassium Level 3.7mEq/L (3.5-5.2) Chloride Level 100mEq/L (97-108) Carbon Dioxide Level 24mmol/L (18-29) Blood Urea Nitrogen 36mg/dL (8-27) Creatinine 0.78mg/dL (0.76-1.27) Estimat Glomerular Filtration Rate 104mL/min (>59) Glucose Level 171mg/dL (60-99) Calcium Level 9.7mg/dL (8.5-10.1) Total Bilirubin 1.9mg/dL (0.0-1.2) Aspartate Amino Transf (AST/SGOT) 65U/L (0-50) Alanine Aminotransferase (ALT/SGPT) 36U/L (0-44) Alkaline Phosphatase 142U/L (25-160) Total Protein 7.3g/dL (6.4-8.4) Albumin 3.4g/dL (3.4-5.0) Procalcitonin 0.29ng/mL (0.00-0.08) Triglycerides Level 258mg/dL (0-149) Hold [place] Top Tube Received (Received) Plan Impression Patient chart reviewed, patient interviewed and anesthestic plan with risks, benefits, and alternatives discussed, and informed consent obtained. NPO per Anesth. Guidelines: Yes ASA Physical Status: ASA3 Plus Emergency Anesthetic Support Modalities: [place] Scope Anesthetic Plan: GA Bene/Risks/Altern/Consents: No HP Complete Prior to Induction: No Other consulted to assist by orotracheal intubation Ranjan Duval DO Mar 07, 2017 10:56
--- NOTE | 2017-03-07 11:01 | PCM.PROC ---
Procedure Note Date of Service: Mar 07, 2017 Pre Procedure Diagnosis: Hypoxic respiratory failure Post Procedure Diagnosis: Hypoxic respiratory failure Procedure: Orotracheal intubation Indication for Procedure: Hypoxic respiratory failure Procedural Analgesia: 2mg midazolam 50mg Ketamine 10mg Etomodate 50mg Rocuronium Administered by MOP MAKER under my direction and immediate supervision. Procedure Details: Mac 3 Video Laryngoscope used to visualize glottis in Grade I detail facilitating orotracheal intubation. Patient required bipap 1.0FiO2 maintaining ~84% SpO2 prior to procedure. Oxygen saturations devited to 78% during intubation and promptly returned to >85% following. Continuous pulse oximetry, NIBP and rhythm analysis dmeonstrate patient tolerated well, however relative sympathectomy from induction and intubation results in postprocedure hypotension which was discussed with ICU MD at bedside. MD declines offer for assistance with MBP management or line placement, care transferred/returned to Dr. Root. Post Procedure Plan: Per ICU managment Ranjan Duval DO Mar 07, 2017 11:01
--- NOTE | 2017-03-07 11:02 | DRSVH ---
PROCEDURE: X-RAY CHEST ONE VIEW, PORTABLE ([id number]) INDICATIONS: Post intubation to verify ETT placement TECHNIQUE: One view of the chest was acquired. COMPARISON: FINDINGS: Surgical changes and devices: The patient has been intubated and the endotracheal tube is 3.8 cm abov e the da. Lungs and pleura: As before, there is complete opacification of the right hemithorax. Interstitial op acities persist within the left hemithorax. Mediastinum: Mediastinal contours appear normal. Heart size is normal. Bones and chest wall: No suspicious bony lesions. Overlying soft tissues appear unremarkable. IMPRESSION: Status post intubation. Dictated by: Dorina Betancourt M.D. on 03/07/2017 at 10:59 Approved by: Dorina Betancourt M.D. on 03/07/2017 at 11:00
[2017-03-07] MEDS: fentaNYL-PF 50 mCg/mL 2 mL Inj IVPUSH PRN ×6 (11:05→22:01)
[2017-03-07] MEDS ORDERED: Ketamine 10 mg/mL 20 mL Inj ONE (11:39)
[2017-03-07] MEDS ORDERED: EPINEPHrine 0.1 mg/mL 10 mL Syringe IV ONE (12:27)
[2017-03-07] MEDS: Chlorhexidine 0.12% 15 mL Oral Solution MT SCH ×3 (12:30→20:43)
--- NOTE | 2017-03-07 13:13 | PROG NOTE ---
[address] [address] PROGRESS NOTE PATIENT: KELLY DENSON : 1945 MR#: [id number] ADMIT: 03/04/2017 JOB ID: [id number] DATE: 03/07/2017 PULMONARY CRITICAL CARE PROGRESS NOTE: The patient is a 71-year-old man with saddle pulmonary embolism diagnosed August 2016, and now rapidly enlarging right hilar mass, suspicious for lung malignancy, presenting with acute hypoxic respiratory failure. INTERVAL HISTORY: He has remained severely hypoxic, significantly worsened after his bronchoscopy Wednesday. He has been on 100% BiPAP pretty much continuously with saturations in the 80% to 86% range. Last night he had a couple of episodes of desaturation to the 70s which improved a little bit with control of anxiety with Ativan and morphine. REVIEW OF SYSTEMS: Continues to have dyspnea, chest discomfort, no fevers, chills. PHYSICAL EXAMINATION: Vital signs reviewed. Temperature 36.7, pulse 120, respirations 31, BP 138/76, sats 84% on 100% BiPAP. He is sitting up in bed, tachypneic, appearing a little more lethargic compared to yesterday. He is in mild distress from his breathing. Chest: No air movement on the right. Crackles on the left. LABORATORIES: Reviewed. WBC 7, hemoglobin 11.1, platelets down to 54. Chemistry reviewed. Procalcitonin remains 0.29. INR today is 1.25. No growth on sputum culture and blood cultures. Chest x-ray shows persistent complete right lung collapse. Arterial blood gas shows pH 7.49, pCO2 41, pO2 46, bicarb 31. ASSESSMENT AND RECOMMENDATIONS: 1. Acute hypoxic respiratory failure. 2. Large right hilar lung mass highly suspicious for malignancy status post bronchoscopy with biopsies on March 05. 3. Submassive pulmonary embolism/saddle embolism in August 2016, resolved with anticoagulation. 4. Complete right lung collapse due to suspected mucus plug following bronchoscopy. 5. Thrombocytopenia. This 71-year-old man presented initially with saddle pulmonary embolus in August 2016, and at the time had no evidence of a lung mass. He was treated with anticoagulation with heparin and subsequently warfarin, and on a routine followup chest CT in early February was found to have a large 10 cm right hilar mass highly suspicious for malignancy. He presented to the hospital night, i.e. March 04, with severe hypoxia, requiring 60% oxygen via high-flow nasal cannula. We proceeded with a bronchoscopy on March 05, for tissue diagnosis for this mass. The patient was given minimal sedation for this and the procedure was done on 100% high-flow nasal cannula. We got good tissue samples but unfortunately due to unavailability of pathologist over the weekend, Wednesday will be the earliest we could even get preliminary results on these. Overnight, postbronchoscopy, the patient developed complete right lung collapse which was seen on a chest x-ray early Wednesday morning, and since that time we have been doing q.4 h. chest physiotherapy which has helped clear some secretions, but as of this morning, his chest x-ray shows persistent right lung collapse which is unchanged. His clinical status also remains unchanged with saturations anywhere between 80% to 86% on 100% oxygen. He remains tachypneic in the 30s. So far, we have a tried hard to avoid intubation based on the patient's wishes but I spoke with him today and was jin that I do not expect this to get any better without intubating and trying another bronchoscopy to remove any occlusive clot or plugs. The patient and his talked about this at length between themselves and with me and all questions were answered. They understand that best case scenario, he will get intubated, we will do a bronchoscopy right after and we will attempt to extubate him tomorrow morning. However, they realize that there is a possibility he would not be ready for extubation tomorrow and also that there is a possibility he would continue to get worse and not survive this hospitalization. At this point, he is FULL CODE and wants to proceed with intubation and with bronchoscopy. With regards to antibiotics, he has been on Zosyn since February 22, 2017, and we will continue that for suspected left-sided pneumonia. His anticoagulation has been on hold because of suspected bleeding from the right bronchus intermedius where his biopsies were taken. I did speak with Dr. Mitchell with oncology over the weekend to ask if there is anything we can do from a chemotherapy standpoint but he recommended waiting for tissue diagnosis. Post intubation, we will use propofol infusion and fentanyl pushes for sedation. Since his platelets are down to the 50s again, I am going to give him a platelet transfusion to minimize risk of bleeding. We will start him on GI prophylaxis with famotidine. Addendum: Please refer to separate detailed bronchoscopy procedure note. Procedure was difficult, and we were unable to remove the entire clot. Also there was evidence of ongoing oozing from airway mucosa. I am hopeful that the platelet transfusion will help slow that. After the procedure, the patient's saturations were still in the low 80s. We turned him to lie down on his left side with right side up and with this his saturations improved slowly to the 95- 97% range. He is going have a PICC line placed for access. We are going to continue chest physiotherapy to the right lung and see if we can mobilize this clot and get it suctioned out. I am also speaking to tell surgery about availability of a rigid bronchoscope in house. The endoscopy staff will work on trying to get a replacement therapeutic bronchoscope and forceps so we could consider reattempting a bronchoscopy tomorrow. I have spoken with the patient's about transferring him to a higher level of care where he could have thoracic surgery involved or interventional bronchoscopy involvement to help open up this right airway. CRITICAL CARE TIME: 120 minutes. SUAD
--- NOTE | 2017-03-07 14:43 | DRSVH ---
PROCEDURE: X-RAY PICC LINE PLACEMENT BY NURSE ([id number]) INDICATIONS: HYPOTENSION COMPARISON: None. FINDINGS: PICC was placed by the intravenous therapy team from the right side. Fluoroscopic spot fi lm demonstrates tip of PICC projected over the cavoatrial junction. IMPRESSION: Tip of PICC is projected over the cavoatrial junction. Dictated by: Dorina Betancourt M.D. on 03/07/2017 at 14:41 Approved by: Dorina Betancourt M.D. on 03/07/2017 at 14:41
--- NOTE | 2017-03-07 15:14 | PCM.PNMED ---
Subjective Date of Service Mar 07, 2017 Subjective Today the patient and primary team in conjunction with pulmonology consulted the patient as to the necessity of intubation and thorough bronchoscopy with potential removal of substance occluding the right bronchus. The patient was initially quite anxious about this possibility but eventually consented to the procedure. Patient was exhibiting increased work of breathing with evidence of fatigue prior to intubation. Overnight the patient desaturated into the 70s with increased work of breathing. Exam Vital Signs Vital Sign - Last Date Time Temp Pulse Resp B/P Pulse Ox O2 Delivery O2 Flow Rate FiO2 03/07/17 12:25 118 109/59 96 100 03/07/17 12:00 37.6 27 Mechanical Ventilator 03/05/17 20:46 60 Intake and Output 03/06/17 03/06/17 03/07/17 Cumulative From/Thru 15:00 23:00 07:00 03/04/17 17:35 - 03/07/17 05:02 Intake Total 175 ml 256 ml 2469 ml Output Total 2190 ml 475 ml 5040 ml Balance -2015 ml -219 ml -2571 ml Intake Oral 50 ml 120 ml 495 ml IV Total 125 ml 136 ml 1695 ml Platelets 279 ml Output Urine Total 1590 ml 475 ml 4440 ml Gastric Drainage Total 600 ml 600 ml # Voids 3 # Bowel Movements 0 Exam Gen: A/O x3 ill appearing gentleman on NPPV Neck: Supple, non tender, no JVD HEENT: PERRL, EOMI, no scleral icterus, wearing NPPV at the time of evaluation CV: RRR, no murmurs rubs or gallops Resp: Breath sounds greatly diminished on right, diffuse expiratory wheezing, no rales or rhonchi Abd: Soft, no rebound guarding masses or tenderness Extr: No clubbing cyanosis or edema Neuro: CN 2-12 grossly intact, no focal neurologic deficit Psych: Patient appropriately anxious about clinical course. IVs and Medications Medications Reviewed: Medications were reviewed in detail Lab and Diagnostics Item Value Date Time Red Blood Count 3.58 mil/mm3 L 03/07/17254 Mean Corpuscular Volume 91.1 fL 03/07/17254 Mean Corpuscular Hemoglobin 31.0 pg 03/07/17254 Mean Corpuscular Hemoglobin Concent 34.0 % 03/07/17254 Red Cell Distribution Width 13.9 % 03/07/17254 Platelet Count 54 niyah/L L 03/07/17254 Neutrophils (%) (Auto) 61.7 % 03/07/17254 Lymphocytes (%) (Auto) 29.6 % 03/07/17254 Monocytes (%) (Auto) 3.9 % L 03/07/17254 Eosinophils (%) (Auto) 0.3 % 03/07/17254 Basophils (%) (Auto) 1.1 % 03/07/17254 Estimat Glomerular Filtration Rate 104 mL/min 03/07/17254 Calcium Level 9.7 mg/dL 03/07/17254 Total Bilirubin 1.9 mg/dL H 03/07/17254 Aspartate Amino Transf (AST/SGOT) 65 U/L H 03/07/17254 Alanine Aminotransferase (ALT/SGPT) 36 U/L 03/07/17254 Alkaline Phosphatase 142 U/L 03/07/17254 Total Protein 7.3 g/dL 03/07/17254 Albumin 3.4 g/dL 03/07/17254 Triglycerides Level 258 mg/dL H 03/07/17824 Procalcitonin 0.29 ng/mL H 03/07/17254 Result Diagram: 03/07/1725403/07/17254 Microbiology MRSA screen negative Blood cultures 2 negative to date . X-Rays, CTs and MRIs X-RAY CHEST ONE VIEW, PORTABLE IMPRESSION: Pulmonary edema pattern, mild cardiomegaly. Mild acute CHF. Dictated by: Milton Bustos M.D. on 03/04/2017 at 19:11 . 12-lead ECG EKG: Sinus tachycardia, heart rate 116, left axis, normal intervals, normal R- wave progression, baseline artifact, no pathological Q waves or acute ischemic changes such as ST elevation or depression. . Assessment & Plan Jono Mayfield is a 71-year-old male with a past medical history significant for hypertension, hyperlipidemia, gout, prostate cancer status post radioactive seed implantation, hypothyroidism, saddle embolus on warfarin, and recently diagnosed large lung mass who presented to [facility] emergency Department for worsening shortness of breath. Acute hypoxemic respiratory failure, present on admission. Active. - The patient presented with acute worsening shortness of breath, tachypnea (RR 36), tachycardia (122), and cough with large lung mass concerning for malignancy. No leukocytosis or fever. 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 He has been off his warfarin for one day for planned bronchoscopy. - Patient was intubated to facilitate bronchoscopy, and reduce work of breathing - Continue Duonebs and albuterol nebs every 2 hours as needed for shortness of breath/wheeze. - Zosyn for broad coverage SIRS secondary lung mass vs post obstructive pneumonia, present on admission. Improving. - The patient presented with acute worsening shortness of breath, tachypnea (RR 36), tachycardic (122), and cough, with large lung mass concerning and also concern for post-obstructive pneumonia. No leukocytosis or fever. - Early goal-directed therapy met including: Broad-spectrum IV antibiotics and early fluid resuscitation. Recently diagnosed large lung mass, present on admission. Active. - Patient was placed back on 125mg PO steroids. Keep dose, and refer to pulmonology for dose adjustments. - Continue high flow oxygen to keep oxygen saturation between 88-92%. - Ordered oncology consultation with Dr. Katie forte oncologist. - Pathology results expected on 03/08 History of saddle embolus on warfarin. - The patient stopped warfarin 03/05 for planned bronchoscopy. - Initial INR subtherapeutic at 1.51. - Hold Warfarin dose per Dr. Root. Patient had friable tissue seen on bronchoscopy that was bleeding prior to procedure. Will hold in order to not exacerbate this bleeding tissue. Thrombocytopenia, acuity unknown, present on admission. Active. - Likely secondary to bone marrow suppression from lung carcinoma. - Initial platelet count 42. Monitoring. - Ordered 1 unit of platelets to be transfused. - Continue to monitor platelet count daily. Anemia, acuity unknown, present on admission. Active. - Likely secondary to bone marrow suppression from lung carcinoma. - Initial hemoglobin 11.5. -The patient is hemodynamically stable and there are no signs of bleeding. - Continue to monitor hemoglobin and hematocrit daily. Chronic problems: Gout, not present on admission. Stable. - Hold allopurinol 100 mg daily while intubated Hypertension, present on admission. Stable. - Hold lisinopril 10 mg daily while intubated - Will consider IV anti HTN should this become problematic Hyperlipidemia, present on admission. Stable. - Hold statin while intubated. Insomnia, present on admission. Stable. - Sedation as needed while intubated Hypothyroidism, present on admission. Stable. - The patient would like to continue taking his natural pork thyroid supplement 190 mg daily please verify with pharmacy. - Ordered TSH, pending. PRN antiemetics: Zofran and Maalox. PRN bowel regimen: Senna and MiraLAX. PRN analgesics: Tylenol and hydrocodone. Disposition: Patient was intubated today to facilitate further bronchoscopy and reduce work of breathing, much of clinical course is dependent upon the results of his lung biopsy which should be available tomorrow 03/08. Cannot forecast date of discharge with accuracy at this point. Pain Evaluation: Adequate Pain Control VTE Prophylaxis: SCDs Resuscitation Status: CPR: Attempt Resuscitation Attending Statement The patient was seen and examined together with Dr. Diehl on 03/07/2017 and I agree with the history, exam and plan as outlined in the note above. . Refugio Diehl DO Mar 07, 2017 15:14 Jere Self MD Mar 07, 2017 15:26 the complexity of case and continued need for care, length of stay is uncertain at this time. . Pain Evaluation: Adequate Pain Control VTE Prophylaxis: SCDs Resuscitation Status: CPR: Attempt Resuscitation Refugio Diehl DO Mar 07, 2017 15:14
--- NOTE | 2017-03-07 16:34 | DRSVH ---
PROCEDURE: X-RAY CHEST ONE VIEW, PORTABLE ([id number]) INDICATIONS: f/u right lung collapse TECHNIQUE: One view of the chest was acquired. COMPARISON: [facility], CT, CT ANGIO CHEST PE, 03/04/2017, 22:41. [facility] , CR, XR CHEST 1VW (PORTABLE), 03/07/2017, 10:34. FINDINGS: Surgical changes and devices: The endotracheal tube is unchanged. An NG tube is present, the tip of w hich is not visualized. Lungs and pleura: There is improved aeration of the right lung when compared with the study from [facility] today. There are diffuse interstitial opacities throughout the right lung and interstitial opacit ies within the left mid and lower lung. Mediastinum: Large right hilar mass is now visualized. Heart is normal size. Bones and chest wall: No suspicious bony lesions. Overlying soft tissues appear unremarkable. IMPRESSION: Improved aeration of the right lung when compared to studies from earlier today. Dictated by: Dorina Betancourt M.D. on 03/07/2017 at 16:30 Approved by: Dorina Betancourt M.D. on 03/07/2017 at 16:32
--- NOTE | 2017-03-07 16:35 | NUR ---
CÉSAR signed by pt's at bedside. Pt is intubated at this time. Lourdes Mcfarlane MSW
--- NOTE | 2017-03-07 17:17 | NUR ---
Social Work- Initial Assessment/Multidisciplinary Rounds Data: See Initial Assessment for additional information. Pt is a 71 year old male admitted 03/04/17 for lung cancer, shortness of breath per H&P. Pt's insurance is [employer]. Pt's PCP is Jese Cai MD. Pt's readmit risk score is 3/8. Pt's NOK/DPOA/Designated mining detail draftsperson is Zahraa Mayfield, . Pt discussed in multidisciplinary rounds, pt to be intubated today. No SW needs identified in rounds. SW met with pt, , and adult children at bedside regarding d/c planning. Pt was intubated during this assessment and did not participate. Pt's capacity for self-care assessed. Pt lives in [place] with his in a single story home. Pt is independent with ADLs and self-care at baseline. Pt has a cane available for use but does not typically use it. Pt drives. Pt has no HH, SNF, LTC, or VA benefits. Pt has home O2 and nebulizers through [employer]. SW provided d/c planning checklist to family, phone number and plan on whiteboard. SW will continue to follow for d/c planning needs as appropriate. Assessment: Pt who is CCU status and intubated at this time. Plan: D/C plan evolving. Pt is independent at baseline. SW will continue to follow for d/c planning needs as appropriate. FELIPE Mast Addendum: 03/07/17 at 1722 by CARMELA POLLOCK Amended: Links added.
--- NOTE | 2017-03-07 17:53 | NUR ---
Intubation/Bronchoscopy/Hemodynamics/Temp Patient continued to have sats in the low 80s, RR 30s, continued weakness and wob. MD here to evaluate. CXR done. It was decided and agreed to by patient/family to intubate. Patient was intubated by anesthesia at around 1015. Current vent settings, 100%/10/450/24. Sats continued in the 80s until after bronchoscopy. Once bronch complete, patient was placed on on his left side. Sats improved and are currently at 98%. Patient is on Propofol at 50 mcgs. Attempted to titrate Propofol down slightly, but patient started over breathing the vent. HR is less tachycardic on vent. Currently, ST at 113. BP, currently 96/53, MAP 69. UOP this shift, 500. Temp at 37.9 and diaphoretic. MD aware of temp.
--- NOTE | 2017-03-07 18:15 | ENDO ---
[address] [address] ENDOSCOPY PROCEDURE PATIENT: KELLY DENSON : 1945 MR#: [id number] ADMIT: 03/04/2017 JOB ID: [id number] DATE OF SERVICE: 03/07/2017 PERFORMED BY: Zulema Root MD. INDICATIONS: Right lung collapse. Informed consent was obtained from the patient and his after the risks and benefits of the procedure were discussed. We did discuss that he would need to be intubated prior to the procedure and this was done shortly before by Anesthesiology. The patient was quite hypoxic on 100% oxygen on the ventilator, with saturations in the low 80s, but this was not thought likely to improve without an intervention, i.e. removal of mucus plug via bronchoscopy. We proceeded initially with the therapeutic 2.8 mm scope and found that due to malfunction, the camera and image had frozen. This had to be removed and replaced with a regular 2.0 mm channel scope which is less than ideal for this procedure. On entering, we saw bloody secretions in the trachea. There were scanned bloody secretions on the left and the left-sided airways were all patent. On the right, however, as expected, there was significant airway edema, mucosal abnormality from tumor and narrowing of the airway with a long stringy piece of clot plus mucus in the airway, causing complete occlusion. We proceeded to try to suction this out repeatedly, but the clot was too large and too friable to get out with the bronchoscope alone. I then attempted to take it out using a forceps, but we were only able to get out small pieces at a time, not make enough of a difference. Also, during the procedure, I noted continuous oozing from the mucosa of the right bronchus intermedius, such that the clot kept reaccumulating even as we tried to remove it. We tried to get additional therapeutic forceps such as a Sherwood net and look for other types of forceps that could be used to remove foreign bodies, for example, but were unsuccessful in finding any that would fit inside the small scope. After multiple attempts and brief desaturation into the mid 70s repeatedly, we were able to remove some of the clot but much of it still remained. After almost an hour to an hour and a half of repeated attempts, we stopped the procedure. FINDINGS: As described above, significant airway edema and tumor involvement circumferentially in the right mainstem and right bronchus intermedius with small clot plus mucus plug in the right mainstem/bronchus intermedius, occluding the airway. Ongoing oozing from this mucosa causing repeated reaccumulation of clot despite attempts at removal. COMPLICATIONS: Desaturation to the mid 70s repeatedly. By the end of the procedure, the patient was in the low 80s. We then put him down on his left side with right side up and his oxygenation improved significantly to the high 90s with this maneuver.
[2017-03-07] MEDS: 0.9% Sodium Chloride 250 ML IV SCH (20:42)
[2017-03-08] VITALS (9 sets, daily range): BP systolic 91–121; BP diastolic 48–67; PULSE 112–114; RESP 24–39; O2SAT 92–98
[2017-03-08] MEDS: Propofol Inj 1,000,000 MCG in IV Premix 1 EACH IV SCH ×4 (00:01→10:18)
[2017-03-08] MEDS: Chlorhexidine 0.12% 15 mL Oral Solution MT SCH ×3 (04:30→09:07)
[2017-03-08 04:58] LABS: BASOPHILS % (AUTO) 0.9 % (0-3); EOSINOPHILS % (AUTO) 0.3 % (0-5); MONOCYTES % (AUTO) 4.2 % (4-12); Mean Corpuscular Hemoglobin 31.3 pg (27.0-35.0); Mean Corpuscular Volume 95.6 fL (81-100); NEUTROPHILS % (AUTO) 60.9 % (40-74); Platelet Count 65 bil/L (150-400)
--- NOTE | 2017-03-08 05:00 | ABG ---
DateTimeAnalyzed 04:52:00 -_ pH ____7.353 - 7.350 7.450 pCO2 ___57.3__ -mmHg 35.0 45.0 pO2 220 -mmHg 69.0 116 HCO3- ___31.0__ -mmol/L 22.0 26.0 ABE ____5.0__ -mmol/L -2.0 2.0 tHb ____9.4__ -g/dL 12.0 18.0 O2Hb ___97.0__ -% COHb ____0.8__ -% 0.0 1.5 MetHb ____1.2__ -% 0.4 1.5 sO2 ___99.0__ -% 25.0 FIO2 __100.0__ -% PRVC 24 - PEEP ___10.0__ -cmH2O Vt __450.0__ -L Drawn By TA - Spontaneous_RR ___24.0__ -b/min Oxygen Device 1 VENTILATOR - B 760 -mmHg tO2 ___13.3__ -Vol% Kofi test _Positive -
[2017-03-08 05:31] LABS: Magnesium 3.2 mg/dL (1.6-2.6); Phosphorus 4.8 mg/dL (2.5-4.9)
[2017-03-08] MEDS ORDERED: 0.9% Sodium Chloride 1,000 ML IV ONE ×2 (05:35→08:05)
[2017-03-08] MEDS ORDERED: 0.9% Sodium Chloride 250 ML IV SCH (05:40)
--- NOTE | 2017-03-08 05:47 | DRSVH ---
PROCEDURE: X-RAY CHEST ONE VIEW, PORTABLE ([id number]) INDICATIONS: Lung mass TECHNIQUE: One view of the chest was acquired. COMPARISON: [facility], CR, XR CHEST 1VW (PORTABLE), 03/07/2017, 16:12. FINDINGS: Surgical changes and devices: Right PICC, ET tube, and NG tube are unchanged. Lungs and pleura: No pleural effusions or pneumothorax. There is improved aeration of the right lung . Right hilar mass is redemonstrated. Diffuse interstitial opacities persist bilaterally. Mediastinum: Mediastinal contours appear normal. Heart size is normal. Bones and chest wall: No suspicious bony lesions. Overlying soft tissues appear unremarkable. IMPRESSION: Improved aeration of the right lung with persistent interstitial opacities bilaterally. Dictated by: Dorina Betancourt M.D. on 03/08/2017 at 5:44 Approved by: Dorina Betancourt M.D. on 03/08/2017 at 5:45
[2017-03-08] MEDS: 0.9% Sodium Chloride 250 ML IV SCH (06:45)
--- NOTE | 2017-03-08 07:34 | ABG ---
DateTimeAnalyzed 07:27:00 -_ pH ____7.384 - 7.350 7.450 pCO2 ___52.4__ -mmHg 35.0 45.0 pO2 ___47.3__ -mmHg 69.0 116 HCO3- ___30.5__ -mmol/L 22.0 26.0 ABE ____5.1__ -mmol/L -2.0 2.0 tHb ____9.3__ -g/dL 12.0 18.0 O2Hb ___79.5__ -% COHb ____0.9__ -% 0.0 1.5 MetHb ____1.1__ -% 0.4 1.5 sO2 ___81.1__ -% 25.0 FIO2 __100.0__ -% PRVC 450 - PEEP ___10.0__ -cmH2O Set_RR ___24.0__ -b/min Vt __440.0__ -L Drawn By jmw - Date/Time Notified____ 07:34:00 -_ Spontaneous_RR ___27.0__ -b/min Oxygen Device 1 VENTILATOR - Notified By jmw - Notified Whom DR KENDREGEN - B 761 -mmHg tO2 ___10.4__ -Vol% OrderingPhysicianInitials bak - Kofi test _Positive -
[2017-03-08] MEDS ORDERED: Lidocaine Topical 2% 30 mL Jelly ONE (07:39)
[2017-03-08] MEDS ORDERED: Lidocaine PF 2% 10 mL Inj ONE (07:39)
[2017-03-08 07:40] LABS: INR 1.1 ratio
[2017-03-08] MEDS ORDERED: Norepineph 8,000 mCg/250 mL NS 8,000 MCG in IV Premix 1 EACH IV SCH (08:01)
--- NOTE | 2017-03-08 08:03 | NUR ---
Desaturation/Peak pressure/Blood pressure Around 0400 pt BP started dropping and peak pressures increased. Original CXR performed with no obvious defect. Labs/ABG NS bolus and MD paged. Call to Dr Root who ordered 1 pack platelets (one donor), 500 cc bolus in NG to lavage stomach. 500 cc placed but only 250 output. At shift report pt started desaturation with diminished sounds on R side. Md at bedside. STat CXR and ABG performed and showed worsening lung function. Bedside bronchoscopy performed. Care ongoing
[2017-03-08] MEDS ORDERED: fentaNYL 2,500 mCg/250 mL 2,500 MCG in IV Premix 1 EACH IV SCH (08:04)
[2017-03-08] MEDS: fentaNYL-PF 50 mCg/mL 2 mL Inj IVPUSH PRN ×2 (08:14→08:25)
--- NOTE | 2017-03-08 08:15 | NUR ---
Respiratory Upon receiving report from NOC shift RN, pt SpO2 dropped rapidly from 90s to high-70s; Dr. Sandoval notified and came to bedside. RT notified and met at bedside as well. STAT CXR obtained and ABG. Dr. Mijares at bedside with ENDO RNs to perform bedside bronchoscopy. Vent settings: 100%, 10, 450, 24. ST 1-teens. Temp 38.3(ax). BPs dropped, MAPs 60; RASS 0 to +1. Norepi gtt started at 0.1mc/kg/min, 500cc NS bolus infusing, fentanyl IV push 25mcg administered, per Dr. Mijares orders; Propofol running at 50mcg/kg/min. RASS now -3, bronch being performed at this time. MAP now 66. Addendum: 03/08/17 at 1129 by SAMIR SANDERS RN Transfer Report called to [facility] receiving RN. [facility] here to transport pt. Family at bedside, to accompany patient. All belongings sent with pt at time of transfer.
[2017-03-08] MEDS: MethylprednisoLONE Sodium Succinate 62.5 mg/mL 2 mL Inj IVPUSH SCH (09:28)
[2017-03-08] MEDS: Piperacillin-Tazo 3.375 Gm Inj 3.375 GM in Dextrose 5% Minibag Plus 50 ML IV SCH ×3 (09:28)
--- NOTE | 2017-03-08 10:17 | PCM.DC.MED ---
Discharge Summary Date of Service Mar 08, 2017 Dates of Hospitalization Date of Hospital Admission Mar 04, 2017 at 19:40 Date of Discharge: Mar 08, 2017 Providers: Admitting Physician: Farheen Goodson DO Primary Care Physician: Jese Cai MD Attending Physician: Dennys Layne DO Diagnosis at Time of Discharge Diagnosis at Time of Discharge Acute Problems: Acute hypoxemic respiratory failure post obstructive pneumonia secondary to right sided hilar lung mass with friable mucosa Acute on chronic Anemia secondary to chronic bone marrow suppression from lung carcinoma and acute pulmonary hemorrhage Thrombocytopenia Chronic problems: 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 Mild acute CHF. Dictated by: Milton Bustos M.D. on 03/04/2017 at 19:11 CT ANGIO CHEST PULMONARY EMBOLISM IMPRESSION: 1. No pulmonary embolus. 2. Increased mediastinal/right hilar mass with bronchovascular encasement and occlusion. 3. New multifocal airspace/groundglass densities, indicating worsening postobstructive phenomenon, and pneumonia. 4. Increased pulmonary metastatic disease. 5. Concordant with preliminary interpretation. Approved by: Brittany Macario M.D. on 03/05/2017 at 8:32 . ECG 12 Lead EKG: Sinus tachycardia, heart rate 116, left axis, normal intervals, normal R- wave progression, baseline artifact, no pathological Q waves or acute ischemic changes such as ST elevation or depression. . Invasive Procedures ENDOSCOPY PROCEDURE: Bronchoscopy. DATE OF SERVICE: 03/05/2017 Indication: Right lung mass. SAMPLES:Right mainstem and bronchus intermedius biopsies x10, endobronchial. FINDINGS: Diffuse erythema and petechiae of bilateral airways, right mainstem, and bronchus intermedius, with significant mucosal edema, erythema, and ulceration with tumor involvement throughout that seemed worse more distally. COMPLICATIONS: Desaturation to the 70s and 80s postprocedure. He is being monitored in PACU and a postprocedure chest x-ray is pending at this time. We placed him on BiPAP for respiratory support since he continued to desat on 100% FiO2 on high-flow nasal cannula. The plan is to transfer him to ICU for additional monitoring. Patient would like to avoid intubation as much as possible and we are trying to do that at this point. Zulema Root MD 03/05/17 1603 ENDOSCOPY PROCEDURE : Bronchoscopy DATE OF SERVICE: 03/07/2017 INDICATIONS: Right lung collapse. FINDINGS: As described above, significant airway edema and tumor involvement circumferentially in the right mainstem and right bronchus intermedius with small clot plus mucus plug in the right mainstem/bronchus intermedius, occluding the airway. Ongoing oozing from this mucosa causing repeated reaccumulation of clot despite attempts at removal. COMPLICATIONS: Desaturation to the mid 70s repeatedly. By the end of the procedure, the patient was in the low 80s. We then put him down on his left side with right side up and his oxygenation improved significantly to the high 90s with this maneuver. Zulema Root MD 03/07/17 9984 Brief History H&P from Dr. Liana Small D.O. "Jono Mayfield is a 71-year-old male with a past medical history significant for hypertension, hyperlipidemia, gout, prostate cancer status post radioactive seed implantation, hypothyroidism, saddle embolus on warfarin, and recently diagnosed large lung mass who presented to [facility] emergency Department for worsening shortness of breath. The patient was at Dr. Wilson of oncology's office who directed the patient to come to the ER as he was severely hypoxemic. The patient presented with an oxygen saturation of 84% on 2 L nasal cannula. The patient was diagnosed with a saddle embolus 6 months ago evaluated at [facility] for possible surgical intervention which was deemed unnecessary at that time and he was started on warfarin. There was no lung mass visualized at that time. He then had a recent CT chest that revealed a large ~10 cm lung mass encroaching on airway. He reports that approximately 5 -6 weeks ago he began having shortness of breath. He reports that his shortness of breath has acutely worsened over the last 10 days, especially in the last 1-2 days. He was recently started on 2 L continuous oxygen yesterday 03/03/2017. The patient denies headache, vision changes, chest pain, pleuritic chest pain, vomiting, fever, chills, extremity pain, calf tenderness, dysuria, diarrhea or constipation. He does endorse night sweats once a month, mid back pain 2 weeks and right rib pain when he bends over. He has had a poor appetite for several months and has lost approximately 5 lbs unintentionally. He was recently started on levofloxacin for postobstructive pneumonia prophylaxis which he reports causes nausea. He has no other complaints at this time. Vital signs in the ER: Temperature 36.4. Pulse 122. Respiratory rate 36. Blood pressure 121/78. Pulse ox 84% on 2 L nasal cannula. He was given in the ED: albuterol continuous nebulizer 10 mg 1, racemic epinephrine nebulizer 1, and methylprednisolone IV 125 mg 1[address] PCP is Dr. Cai. Oncologist is Dr. Wilson." Hospital Course Acute hypoxemic respiratory failure - The patient presented with acute worsening shortness of breath, tachypnea (RR 36), tachycardia (122), and cough with large lung mass concerning for malignancy. No leukocytosis or fever. 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 He has been off his warfarin for one day for planned bronchoscopy. - Patient was intubated to facilitate bronchoscopy, and reduce work of breathing - Continue Duonebs and albuterol nebs every 2 hours as needed for shortness of breath/wheeze. - Zosyn for broad coverage Post obstructive pneumonia secondary to right sided hilar lung mass with friable mucosa - The patient presented with acute worsening shortness of breath, tachypnea (RR 36), tachycardic (122), and cough, with large lung mass concerning and also concern for post-obstructive pneumonia. - patient developed fever on the 4th hospital day despite Zosyn antibiotics - Early goal-directed therapy met including: Broad-spectrum IV antibiotics and early fluid resuscitation. - Zosyn for broad coverage - Patient was placed back on 125mg PO steroids. - Continue high flow oxygen to keep oxygen saturation between 88-92%. - Dr. Wilson his oncologist. - Pathology results expected on 03/08 Acute on Chronic Anemia secondary to chronic bone marrow suppression from lung carcinoma and acute pulmonary hemorrhage - Likely secondary to bone marrow suppression from lung carcinoma. - Initial hemoglobin 11.5. -The patient is hemodynamically stable and there are no signs of bleeding. - Continue to monitor hemoglobin and hematocrit daily. Thrombocytopenia, acuity unknown, present on admission. Active. - Likely secondary to bone marrow suppression from lung carcinoma. - Initial platelet count 42. Monitoring. - Ordered 1 unit of platelets to be transfused. - Continue to monitor platelet count daily. 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 - Initial INR subtherapeutic at 1.51 - The patient stopped warfarin 03/05 for planned bronchoscopy continue hold Warfarin for possible interventional pulmonology - Patient had friable tissue seen on bronchoscopy that was bleeding prior to procedure. Will hold in order to not exacerbate this bleeding tissue. Gout, not present on admission. Stable. - Hold allopurinol 100 mg daily while intubated Hypertension, present on admission. Stable. - Hold lisinopril 10 mg daily while intubated and hypotensive Hyperlipidemia, present on admission. Stable. - Hold statin while intubated. Insomnia, present on admission. Stable. - Sedation as needed while intubated Hypothyroidism, present on admission. Stable. - The patient would like to continue taking his natural pork thyroid supplement 190 mg daily please verify with pharmacy. Exam Vital Signs (Last) Date Time Temp Pulse Resp B/P Pulse Ox O2 Delivery O2 Flow Rate FiO2 03/08/17 07:59 38.1 113 26 97/48 03/08/17 07:43 96 100 03/08/17 04:35 Mechanical Ventilator 03/05/17 20:46 60 Exam Gen: A/O x3 ill appearing gentleman intubated and sedated Neck: Supple, no JVD HEENT: PERRL, EOMI, no scleral icterus, ET tube in place CV: RRR, no murmurs rubs or gallops Resp: Breath sounds greatly diminished on right, with diffuse expiratory wheezing, no rales or rhonchi Abd: Soft, tympanic to percussion, no masses or hepatosplenomegaly noted Extremities: No clubbing cyanosis or edema : morrissey in place skin: warm and dry Neuro: unable to assess Psych: unable to assess Test 03/04/17 17:48 03/04/17 18:09 03/05/17 03:55 03/05/17 04:30 Hold Urine Received (Received) Activated Partial Thromboplast Time 40.8sec (22.8-33.0) Hemoglobin A1c 6.1% (4.8-5.6) Thyroid Stimulating Hormone (TSH) 6.860uIU/mL (0.450-4.500) Hold Rey Top Tube Received (Received) Free Thyroxine 0.59ng/dL (0.82-1.77) Urine Legionella pneumophilia Ag Negative (Negative) Test 03/06/17 23:10 03/07/17 08:25 03/08/17 04:50 03/08/17 06:00 Urine Color Yellow (YELLOW) Urine Appearance Clear (CLEAR,HAZY) Urine pH 5.5 (5.0-8.0) Urine Specific [place]let 1.025 (1.003-1.035) Urine Protein 100mg/dL (NEG,TRACE) Urine Glucose (UA) Negativemg/dL (NEGATIVE) Urine Ketones Negativemg/dL (NEGATIVE) Urine Occult Blood Moderate (NEGATIVE) Urine Nitrite Negative (NEGATIVE) Urine Bilirubin Negative (NEGATIVE) Urine Urobilinogen Normalmg/dL (NORMAL) Urine Leukocyte Esterase Negative (NEGATIVE) Urine RBC 0-2/hpf (0-2) Urine WBC 0-5/hpf (0-5) Urine Epithelial Cells Few/hpf (NONE-MOD) Urine Crystals Amorphous urates (NONE Urine Bacteria Few/hpf (NONE-FEW) Urine Hyaline Casts None/lpf (NONE) Urine Granular Casts None seen (NONE SEEN) Urine Waxy Casts None seen (NONE SEEN) Urine Red Blood Cell Casts None seen (NONE SEEN) Urine White Blood Cell Casts None seen (NONE SEEN) Urine Mucus Present (None Seen) Urine Trichomonas None seen (NONE SEEN) Urine Yeast None (NONE SEEN) Urinalysis Comment None Urine Culture Reflexed Not indicated Hold Charlotte Top Tube Received (Received) White Blood Count 6.5th/mm3 (3.8-10.1) Red Blood Count 2.94mil/mm3 (4.40-5.80) Mean Corpuscular Volume 95.6fL (81-100) Mean Corpuscular Hemoglobin 31.3pg (27.0-35.0) Mean Corpuscular Hemoglobin Concent 32.7% (32.0-37.0) Red Cell Distribution Width 14.5% (12.3-15.4) Platelet Count 65bil/L (150-400) Neutrophils (%) (Auto) 60.9% (40-74) Lymphocytes (%) (Auto) 31.7% (14-46) Monocytes (%) (Auto) 4.2% (4-12) Eosinophils (%) (Auto) 0.3% (0-5) Basophils (%) (Auto) 0.9% (0-3) Hematology Comments Sodium Level 151mEq/L (134-144) Potassium Level 4.4mEq/L (3.5-5.2) Chloride Level 107mEq/L (97-108) Carbon Dioxide Level 29mmol/L (18-29) Blood Urea Nitrogen 59mg/dL (8-27) Creatinine 1.36mg/dL (0.76-1.27) Estimat Glomerular Filtration Rate 55mL/min (>59) Glucose Level 157mg/dL (60-99) Calcium Level 9.2mg/dL (8.5-10.1) Phosphorus Level 4.8mg/dL (2.5-4.9) Magnesium Level 3.2mg/dL (1.6-2.6) Total Bilirubin 1.6mg/dL (0.0-1.2) Aspartate Amino Transf (AST/SGOT) 64U/L (0-50) Alanine Aminotransferase (ALT/SGPT) 46U/L (0-44) Alkaline Phosphatase 133U/L (25-160) Total Protein 6.9g/dL (6.4-8.4) Albumin 3.3g/dL (3.4-5.0) Triglycerides Level 404mg/dL (0-149) Procalcitonin 0.39ng/mL (0.00-0.08) Hemoglobin 8.4g/dL (13.8-17.2) Hematocrit 26.5% (41.0-50.0) Prothrombin Time 11.8sec (8.1-12.5) Prothromb Time International Ratio 1.10ratio Microbiology Results MRSA screen negative Blood cultures 2 negative to date . Discharge Medications Discharge Medications ([NOW brand diet supp]) 1 CAPSULE PO BID (Reported) Allopurinol (Allopurinol) 100 Mg Tablet 100 MG PO HS (Reported) Amlodipine (Amlodipine) 5 Mg Tablet 5 MG PO HS (Reported) Cholecalciferol (Vitamin D3) (Vitamin D3) 2,000 Unit Capsule 5,000 UNIT PO DAILY (Reported) Krill Oil (Krill Oil) 500 Mg Capsule 500 MG PO DAILY (Reported) Lactobacillus Combo No.11 (Probiotic) 1 Each Cap.sprink 1 EACH PO BID (Reported ) Lovastatin (Lovastatin) 20 Mg Tablet 20 MG PO HS (Reported) Prednisone (PredniSONE) 10 Mg Tablet 40 MG PO DAILY (Reported) Thyroid,Pork (Nature-Throid) 162.5 Mg Tablet 195 MG PO HS (Reported) Warfarin Sodium (Jantoven) 5 Mg Tablet 5 MG PO ALL OTHER DAYS (Reported) Warfarin Sodium (Warfarin Sodium) 7.5 Mg Tablet 7.5 MG PO MON WED (Reported) As needed Albuterol Neb Soln (Albuterol Neb Soln) 2.5 Mg/3 Ml Vial.neb 1 NEB INH Q4H PRN PRN For Shortness of Breath (Reported) Lorazepam (Lorazepam) 0.5 Mg Tablet 1 TAB PO BID PRN PRN ANXIETY OR SLEEP ( Reported) Additional med instructions Propofol and Fentanyl GGT Norepinephrine GGT Zosyn 3.375g IV Q8 Methylprednisolone 125mg Q8 Albuterol Nebs Q2 Duonebs QIDWA Followup Plan Disposition: Discharge to [facility] for ICU/pulmonary interventionalist Follow-up plan As determined by [facility] Time spent 40 minutes Attending Statement Given complexity of case related to pulmonary mass, obstructing bronchial secretions/mucus plugging and thrombocytopenia, following intially flex- bronchoscopy, it was determined pt would require more invasive intervention and would benefit from a higher level of care as a result. He was tranferred to [facility] in [place] on recommendation of our consulting pulmonology team. Gal Young DO Mar 08, 2017 10:17 Dennys Layne DO Mar 08, 2017 13:28
--- NOTE | 2017-03-08 10:44 | PROG NOTE ---
[address] [address] PROGRESS NOTE PATIENT: KELLY DENSON : 1945 MR#: [id number] ADMIT: 03/04/2017 JOB ID: [id number] DATE: 03/08/2017 PROBLEM: 1. Lung mass. 2. Hemoptysis. 3. Hypoxemic hypercarbic respiratory failure. SUBJECTIVE: Called emergently to the patient's bedside because of acute desaturation. Had been running sats on the ventilator set at FiO2 of 100%, PEEP at 10, with a pO2 of 220. However, this was at about 5 a.m. At about 7 a.m., O2 saturations fell over a 5-10 minute period down to 74%. OBJECTIVE: Blood pressure 93/50. Pulse was about 120. Chest showed good breath sounds on the left. There were moderately to markedly decreased breath sounds on the right. Moderately diminished in the right upper lung field. Essentially absent in the right lower lung field, with inspiratory squeaking pulmonary adventitial sounds in the mid and upper lung field on the right. Heart: Rapid rate. Regular rhythm. Peak inspiratory pressures were in the low 50s where they had been running in the mid 30s prior to this. A stat chest x-ray showed right lobar atelectasis, likely including the right lower lobe, possibly right middle lobe. Right upper lobe seemed patent. Emergent bronchoscopy was performed. Discussed the high risks of bronchoscopy with the patient's , but also the benefits to evaluate the patient's dire condition. It was noted on sitting him up, possibly slightly before, that his O2 sats live to the low to mid 90s. Approximately 2 cc of 2% lidocaine was instilled into the trachea via the endotracheal tube, 1:40,000 epinephrine was prepared as was iced saline at the bedside. Bronchoscope was passed through the endotracheal tube. The endotracheal tube tip was about 3 cm above the main da. Anterior wall of the trachea showed some fresh blood. The left mainstem was patent without obstruction or the presence of blood. Approximately 1-2 cm distal to the main da, a blood clot was seen almost completely obstructing the right mainstem bronchus. It appeared to be a somewhat fresh mucoid clot. There was a small amount of bubbling anteriorly, maybe 1-2 mm in diameter. O2 sat throughout that time remained in the mid to high 80s, low 90s. Lowest O2 sat seen was 85%. Seemed to stabilize more to 91-92%. It was decided that the clot should not be removed as it seemed to be tamponading the bleeding. Oxygenation was acceptable. During the procedure, the patient was given 500 mL of normal saline and started on norepinephrine infusion at 0.01 mcg/kg per minute, with blood pressures running 144/64, at the moment. At the termination of the procedure, the tip of the endotracheal tube was identified 3 cm above the main da. Washings and biopsies were not performed because of the danger about bleeding. SPECIMENS OBTAINED: None.
[2017-03-08] MEDS ORDERED: Ketamine 10 mg/mL 20 mL Inj ONE (11:39)
[2017-03-08] MEDS ORDERED: Etomidate 2 mg/mL 20 mL Inj IV ONE (11:39)
[2017-03-08] MEDS ORDERED: Esmolol 10,000 mCg/mL 10 mL Inj ONE (11:39)
[2017-03-08] MEDS ORDERED: Rocuronium 10 mg/mL 5 mL Inj ONE (11:39)
--- NOTE | 2017-03-08 11:41 | PATH ---
SURGICAL PATHOLOGY Attending Physician:Zulema Root MD CASE STATUS: Signed Out PATIENT NAME: KELLY DENSON PID: [id number] : 1945 DATE COLLECTED:03/05/2017 00:43 SPECIMEN: Lung Biopsy CLINICAL HISTORY: RIGHT LUNG MASS, ? SMALL CELL 1). RIGHT MAINSTEM ENDOBRONCHIAL LUNG BIOPSY FINAL DIAGNOSIS: Right Main Stem Bronchus, Endobronchial Biopsy: Positive for neoplasm, morphologically consistent with small cell carcinoma. Confirmatory immunohistochemical stains are pending and results will issued in an addendum. ICD10: C34.01 NOTE: As part of routine manager quality systems, Dr. Hernandez has reviewed this case and agrees with the above diagnosis. The preliminary findings were discussed with Dr. Root on 03/08/2017 at 10:[address] Wilson on 03/08/2017 at 10:[address] Jeff Navarro. GROSS DESCRIPTION: The specimen is received in one formalin filled container labeled with the patient's name, sublabeled "right mainstem endobronchial lung" and consists of multiple portions of light jennings tissue which aggregate to 0.5 x 0.3 x 0.2 CM. The specimen is filtered and entirely submitted in one cassette. 03/06/2017DC ICD-9 CODES: CPT CODES: 1: 68873, 65795, 01116, 24279 PROCEDURE/ADDENDA: Addendum SPI Addendum Diagnosis This addendum is issued to report the results of confirmatory immunohistochemical studies. Addendum Comment To confirm the histologic impression of small cell carcinoma, a limited panel of immunohistochemistry is performed (each with an appropriately positive control), and the neoplastic cells are variably positive for ILIR (pancytokeratin), synaptophysin and chromogranin protein expression. This immunophenotype is consistent with the histologic impression of small cell carcinoma. * This test was developed and its performance characteristics determined by [employer]. It has not been cleared or approved by the U.S. Food and Drug Administration. The FDA has determined that such clearance or approval is not necessary. This test is used for clinical purposes. It should not be regarded as investigational or for research. Electronically Signed Out Jeff Navarro MD, Ph.D. Electronically Signed Out Jeff Navarro MD, Ph.D. [facility] Pathology [facility] [address], [place] [address] Technical component performed at [facility], [address], [place], [address]
--- NOTE | 2017-03-08 14:44 | DRSVH ---
PROCEDURE: X-RAY CHEST ONE VIEW, PORTABLE ([id number]) INDICATIONS: low SpO2 TECHNIQUE: One view of the chest was acquired. COMPARISON: [facility], CR, XR CHEST 1VW (PORTABLE), 03/05/2017, 16:18. [facility], CR, XR CHEST 1VW (PORTABLE), 03/07/2017, 16:12. [facility], CR, XR CHEST 1VW (POR TABLE), 03/08/2017, 3:35. FINDINGS: Surgical changes and devices: ETT tip projected 5.4 cm above the da. Stable position nasogastric tube and right PICC. Lungs and pleura: Interval increase in airspace opacity involving the mid right lung and right lung b ase with persistent bilateral interstitial opacities. Small right pleural effusion present, possibly loculated. Mediastinum: Mediastinal contours appear normal. Heart size is normal. Bones and chest wall: No suspicious bony lesions. Overlying soft tissues appear unremarkable. IMPRESSION: 1. Stable position of support lines and tubes as above. 2. Interval increase in airspace opacity within the mid right lung and right lung base consistent wit h worsening pneumonia and/or patchy pulmonary edema. Continued radiographic surveillance to resolutio n is recommended. 3. Small right pleural effusion which may be loculated. Dictated by: Vidal BUI Interpreted: Milton Bustos MD on 03/08/2017 at 8:35 Approved by: Milton Bustos M.D. on 03/08/2017 at 14:42
--- NOTE | 2017-03-08 18:45 | PROG NOTE ---
[address] [address] PROGRESS NOTE PATIENT: KELLY DENSON : 1945 MR#: [id number] ADMIT: 03/04/2017 JOB ID: [id number] DATE: 03/08/2017 Events over the past three days are noted. The patient was admitted to [facility] on March 04, 2017, after being seen in my clinic at [facility] presenting as a new patient with a rapidly enlarging right hilar mass with respiratory compromise. The patient was subsequently transferred to [facility] for admission and bronchoscopy to obtain tissue diagnosis. Upon an evaluation at [facility], the patient was noted to have an O2 sat of 84% on 2 L, pulse 122, respiratory rate 36, temperature 36. CBC with a white cell count of 4.8, hemoglobin 11.5, platelet count of 42. Sodium 135, potassium 3.8. Serum creatinine 0.84, AST 55, ALT 29, alk phos 105. Initial workup including CT of the chest, dated March 04, 2017, reporting no evidence of a pulmonary emboli. However, the prominent large right hilar mass was noted to be increased in size compared to previous scan dated just March 08, 2017. The mass encased the right pulmonary artery, as well as the right upper middle lobe and right lower lobe pulmonary arteries. The mass encased the right mainstem bronchus, right upper lobe bronchus and bronchus intermedius, as well as the right lower and middle lobe bronchi. The mass severely narrows the right middle lobe bronchus and occludes the right upper and lower lobe bronchi. The mass extended posteriorly to partially encase the esophagus measuring approximately 94 anterior-posterior, 96 transverse, 90 craniocaudad. Initial evaluation included bronchoscopy procedure by Dr. Zulema Root on March 07, 2017. Bronchoscopy report identifying significant airway edema, mucosal abnormality within the right mainstem bronchus, with narrowing of the airway noted with a "long stringy piece of clot plus mucus in airway causing complete obstruction." Attempts to suction out the lesion was unsuccessful. Biopsy of the sample was taken. Pathology from the specimen reported on March 08, 2017 at 10 a.m. consistent morphologically with small cell lung cancer. Unfortunately patient's respiratory status declined during his admission. The patient after bronchoscopy was on 80% high-flow O2. The patient had a documented collapse of the right lung on March 06, 2017, as well as clinical features consistent with bilateral pneumonia. The patient was subsequently intubated on March 07, 2017. On March 08, 2017, the patient's O2 saturations dropping down to 74% with emergent bronchoscopy performed by Dr. Mijares on March 08, 2017. At approximately 3 cm above the main da, anterior tracheal wall showing fresh blood. Approximately 2 cm distal to the main da, blood clot was seen almost completely obstructing the right mainstem bronchus. "appeared to be a somewhat fresh mucoid clot. There were small amounts of bubbling anterior, maybe 1-2 mm in diameter." Clot was not removed as it seemed to be tamponading the bleeding. The patient was subsequently transferred to [facility] on March 08, 2017. ASSESSMENT AND PLAN: The patient is a 71-year-old male, newly diagnosed with small cell lung cancer, presenting in the acute setting on March 04, 2017, at [facility] as a new patient with a large right hilar mass with complicating features above. The patient's tissue diagnosis on March 06, 2017, from bronchoscopy procedure confirming small cell lung cancer by morphology. IHC stains pending at this time. The patient's clinical course over the past 72 hours complicated by collapse of the right lung, bilateral pneumonia, and complete obstruction of the right mainstem bronchus. Dr. Mijares with the hospitalist service has arranged for transfer to [facility]. Further interventional management to address formation of an occlusive blood clot versus systemic therapy with chemotherapy and/or radiation therapy will be pursued at [facility]
== END 2017-03-08 11:40 | disposition short-term general hospital (02) | DRG 208 ==
LOC: SED 17:31 → PCC 19:40 → CCU 03-05 16:25
PROVIDERS: ADMIT Internal Medicine; ATTEND Internal Medicine
PROC: 4A033R1 Measurement of Arterial Saturation, Peripheral, Percutaneous Approach (ICD-10-PCS; 2017-02-28)
PROC: 30233R1 Transfusion of Nonautologous Platelets into Peripheral Vein, Percutaneous Approach (ICD-10-PCS; 2017-03-04)
PROC: 0BB38ZX Excision of Right Main Bronchus, Via Natural or Artificial Opening Endoscopic, Diagnostic (ICD-10-PCS; principal; 2017-03-05 14:00)
PROC: 5A1935Z Respiratory Ventilation, Less than 24 Consecutive Hours (ICD-10-PCS; 2017-03-07)
PROC: 0BH18EZ Insertion of Endotracheal Airway into Trachea, Via Natural or Artificial Opening Endoscopic (ICD-10-PCS; 2017-03-07)
PROC: 30233R1 Transfusion of Nonautologous Platelets into Peripheral Vein, Percutaneous Approach (ICD-10-PCS; 2017-03-07)
PROC: 30233R1 Transfusion of Nonautologous Platelets into Peripheral Vein, Percutaneous Approach (ICD-10-PCS; 2017-03-08)
PROC: 0BC38ZZ Extirpation of Matter from Right Main Bronchus, Via Natural or Artificial Opening Endoscopic (ICD-10-PCS; 2017-03-08)
DX: J96.01 Acute respiratory failure with hypoxia (principal); J18.8 Other pneumonia, unspecified organism; C34.01 Malignant neoplasm of right main bronchus; J98.19 Other pulmonary collapse; D62 Acute posthemorrhagic anemia; Z86.711 Personal history of pulmonary embolism; Z79.01 Long term (current) use of anticoagulants; E03.9 Hypothyroidism, unspecified; Z85.46 Personal history of malignant neoplasm of prostate; I10 Essential (primary) hypertension; E78.5 Hyperlipidemia, unspecified; Z87.891 Personal history of nicotine dependence; D69.6 Thrombocytopenia, unspecified; D63.0 Anemia in neoplastic disease